=== PATIENT | male | born 1950 | race Caucasian/White ===

== ENCOUNTER → 2016-07-15 | Outpatient (REF) | payer MEDICARE ==
[~2016-07-15] MED LIST: /OXAZ10CA OR; /PRAV20TA OR; /THIA10TA OR; ACET500C OR; BABY81CH OR; COLA100C2 OR; DEPA250T2 OR; DEPA250T3 OR; DETR4CAP OR; FOLI1TAB OR; HYDROCORTISONE0.5 % TOP; KEPPRA PO; LACT10SO8 OR; LOVAZA PO; MULTIVIT PO; NICO14DI3 TD; OMEP20TA7 OR; OYSCO PO; TRIC145T19 OR; VITA100T OR; ZEBE5TAB OR; [UNRECOGNIZED DRUG - OTHER] PO
[2016-07-15 18:18] LABS: MEAN CORPUSCULAR HEMOGLOBIN 31.3 pg (27.0-33.0); MEAN CORPUSCULAR VOLUME 92.2 fl (80.0-96.0); RED CELL DISTRIBUTION WIDTH 13.8 % (11.5-14.5)
[2016-07-15 19:02] LABS: ALBUMIN 4.2 GM/DL (3.2-5.2); ALKALINE PHOSPHATASE 64 U/L (45-117); ALT/SGPT 11 U/L (12-78); ANION GAP 11 MEQ/L (8-16); AST/SGOT 14 U/L (15-37); BILIRUBIN,TOTAL 0.5 MG/DL (0.2-1.0); BLOOD UREA NITROGEN 9 MG/DL (7-18); CALCIUM LEVEL 8.9 MG/DL (8.8-10.2); CARBON DIOXIDE LEVEL 26 MEQ/L (21-32); CHLORIDE LEVEL 101 MEQ/L (98-107); CHOLESTEROL LEVEL 156 MG/DL (<200); CREATININE FOR GFR 0.71 MG/DL (0.70-1.30); GLOMERULAR FILTRATION RATE > 60.0 (>49); GLUCOSE, FASTING 80 MG/DL (80-110); POTASSIUM SERUM 3.9 MEQ/L (3.5-5.1); SODIUM LEVEL 138 MEQ/L (136-145); TOTAL PROTEIN 7.7 GM/DL (6.4-8.2); TRIGLYCERIDES LEVEL 123 MG/DL (<150)
== END ==
LOC: M SFHCPLAZ 15:30
PROVIDERS: ATTEND Nurse Practitioner Adult Health
DX: I25.10 Atherosclerotic heart disease of native coronary artery without angina pectoris (principal); G40.909 Epilepsy, unspecified, not intractable, without status epilepticus; Z79.899 Other long term (current) drug therapy
CPT/HCPCS: 36415; 80053; 80061; 80164; 85027; G0402

== ENCOUNTER → 2018-04-26 | Outpatient (REF) | payer MEDICARE ==
[2018-04-26 13:00] LABS: ALBUMIN 3.8 GM/DL (3.2-5.2); ALT/SGPT 9 U/L (12-78); BILIRUBIN,TOTAL 0.4 MG/DL (0.2-1.0); BLOOD UREA NITROGEN 7 MG/DL (7-18); CALCIUM LEVEL 9.1 MG/DL (8.8-10.2); CARBON DIOXIDE LEVEL 23 MEQ/L (21-32); CHLORIDE LEVEL 101 MEQ/L (98-107); CREATININE FOR GFR 0.66 MG/DL (0.70-1.30); GLOMERULAR FILTRATION RATE > 60.0 (>49); GLUCOSE, FASTING 89 MG/DL (70-100); POTASSIUM SERUM 4.1 MEQ/L (3.5-5.1); SODIUM LEVEL 135 MEQ/L (136-145); TOTAL PROTEIN 7.3 GM/DL (6.4-8.2); VALPROIC ACID (DEPAKOTE) 75.8 UG/ML (50.0-100.0)
== END ==
LOC: M SFHCPLAZ 11:13
PROVIDERS: ATTEND Nurse Practitioner Adult Health
DX: I25.10 Atherosclerotic heart disease of native coronary artery without angina pectoris (principal); G40.909 Epilepsy, unspecified, not intractable, without status epilepticus
CPT/HCPCS: 36415; 80053; 80164; 90682; G0008

== ENCOUNTER 2018-06-20 19:35 | Inpatient (IN) | payer MEDICARE, MEDICAID ==
[~2018-06-20] VITALS: Ht 167.6 cm; Wt 59.9 kg
[2018-06-20] MEDS ORDERED: DIVA250T7 PO (20:13)
[2018-06-20 20:43] LABS: BASO % 0.3 % (0.0-1.0); EOS % 0.5 % (0.0-3.0); HEMATOCRIT 37.3 % (42.0-52.0); HEMOGLOBIN 12.9 g/dl (13.5-17.5); LYMPH # 0.7 10^3/uL (1.5-4.5); MEAN CORPUSCULAR HEMOGLOBIN 31.7 pg (27.0-33.0); MEAN CORPUSCULAR HGB CONC 34.6 g/dl (32.0-36.5); MEAN CORPUSCULAR VOLUME 91.6 fl (80.0-96.0); MONO # 0.3 10^3/uL (0.0-0.8); MONO % 5.6 % (0.0-5.0); NEUTROPHILS % 81.8 % (36.0-66.0); PLATELET COUNT, AUTOMATED 236 10^3/uL (150-450); RED BLOOD COUNT 4.07 10^6/uL (4.30-6.10); WHITE BLOOD COUNT 6.1 10^3/uL (4.0-10.0)
[2018-06-20 20:53] LABS: INR 1.3; PROTHROMBIN TIME 16.4 SECONDS (12.1-14.4)
[2018-06-20 20:54] LABS: PARTIAL THROMBOPLASTIN TIME 27.3 SECONDS (25.4-37.6)
[2018-06-20] MEDS ORDERED: NS 1,000 ML IV SCH (21:04)
[2018-06-20 21:18] LABS: ALBUMIN 3.6 GM/DL (3.2-5.2); ALT/SGPT 24 U/L (12-78); BILIRUBIN,DIRECT 0.6 MG/DL (0.0-0.2); BILIRUBIN,TOTAL 1.4 MG/DL (0.2-1.0); BLOOD UREA NITROGEN 5 MG/DL (7-18); CARBON DIOXIDE LEVEL 20 MEQ/L (21-32); CHLORIDE LEVEL 92 MEQ/L (98-107); CPK CREATINE PHOSPHOKINASE 625 U/L (39-308); CREATININE FOR GFR 1.22 MG/DL (0.70-1.30); ETHYL ALCOHOL (ETHANOL) < 0.003 % (0.000-0.010); FREE T4 1.52 NG/DL (0.76-1.46); GLOMERULAR FILTRATION RATE > 60.0 (>49); GLUCOSE, FASTING 161 MG/DL (70-100); MAGNESIUM LEVEL 2.2 MG/DL (1.8-2.4); MB/CK RELATIVE INDEX 1.66 (< OR =4); PHOSPHORUS LEVEL 4.6 MG/DL (2.5-4.9); POTASSIUM SERUM 3.5 MEQ/L (3.5-5.1); SODIUM LEVEL 129 MEQ/L (136-145); TOTAL PROTEIN 6.9 GM/DL (6.4-8.2); TROPONIN I < 0.02 NG/ML (< 0.10)
--- NOTE | 2018-06-20 21:20 | REPVR ---
EXAM: CT Head Without Contrast EXAM DATE/TIME: 06/20/2018 8:19 PM CLINICAL HISTORY: 67 years old, male; Signs and symptoms; Altered mental status/memory loss; Confusion or disorientation TECHNIQUE: Axial computed tomography images of the head/brain without contrast. All CT scans at this facility use at least one of these dose optimization techniques: automated exposure control; mA and/or kV adjustment per patient size (includes targeted exams where dose is matched to clinical indication); or iterative reconstruction. COMPARISON: No relevant prior studies available. FINDINGS: Brain: Artifact limits evaluation of the posterior fossa and inferior left temporal lobe. There are periventricular foci of hypodensity, suggestive of small vessel ischemic disease in a patient this age. The acuity of the white matter disease is indeterminate. The white-santos differentiation is preserved demonstrating no acute territorial type infarct. No acute intracranial hemorrhage is seen. Midline shift: There is no midline shift. Ventricles: There is ventriculomegaly. Normal pressure or communicating hydrocephalus cannot be excluded. Mild/moderate sulcal atrophy is also visualized. Tiny calcifications are identified within the frontal horn of the left lateral ventricle. Bones/joints: The calvarium demonstrates no evidence for a depressed fracture. Sinuses: Visualized sinuses are unremarkable. No acute sinusitis. Mastoid air cells: No mastoid effusion. Soft tissues: Unremarkable. Vasculature: There is atherosclerotic calcification of the intracranial internal carotid arteries. IMPRESSION: 1. No acute intracranial hemorrhage or acute territorial type infarct. 2. There is ventriculomegaly. Normal pressure or communicating hydrocephalus cannot be excluded. Mild/moderate sulcal atrophy is also visualized. 3. There are periventricular foci of hypodensity, suggestive of small vessel ischemic disease in a patient this age. 4. If further evaluation is clinically indicated, an MRI of the brain with/without contrast is recommended. Electronically signed by: Percy Harvey On 06/20/2018 21:19:56 PM
[2018-06-20 22:02] LABS: VALPROIC ACID (DEPAKOTE) 3.4 UG/ML (50.0-100.0)
[2018-06-20] MEDS: DIVALPROEX 250MG *ER* TAB PO SCH (22:45)
[2018-06-20] MEDS ORDERED: LORazepam 2 MG/ML VIAL (J2060) IM PRN (22:45)
[2018-06-20] MEDS ORDERED: NICOTINE 21MG/24HR 1 EA TRANSDERMAL TD PRN (23:00)
[2018-06-21] MEDS: DIVALPROEX 250MG *ER* TAB PO SCH ×2 (00:24→08:56)
[2018-06-21] MEDS: NS 1,000 ML IV SCH ×3 (00:26→20:33)
[2018-06-21 03:57] LABS: AMPHETAMINES LEVEL URINE NEGATIVE (NEGATIVE); BARBITURATES URINE NEGATIVE (NEGATIVE); BENZODIAZEPINES URINE NEGATIVE (NEGATIVE); CANNABINOIDS URINE NEGATIVE (NEGATIVE); COCAINE METABOLITE URINE NEGATIVE (NEGATIVE); METHADONE URINE NEGATIVE (NEGATIVE); OPIATES URINE NEGATIVE (NEGATIVE); PHENCYCLIDINE URINE NEGATIVE (NEGATIVE)
[2018-06-21 05:36] LABS: HEMATOCRIT 30.5 % (42.0-52.0); MEAN CORPUSCULAR HEMOGLOBIN 32.2 pg (27.0-33.0); MEAN CORPUSCULAR HGB CONC 36.1 g/dl (32.0-36.5); MEAN CORPUSCULAR VOLUME 89.2 fl (80.0-96.0); PLATELET COUNT, AUTOMATED 201 10^3/uL (150-450); RED BLOOD COUNT 3.42 10^6/uL (4.30-6.10); WHITE BLOOD COUNT 5.9 10^3/uL (4.0-10.0)
[2018-06-21 05:57] LABS: ALBUMIN 2.8 GM/DL (3.2-5.2); ALT/SGPT 22 U/L (12-78); BILIRUBIN,TOTAL 0.8 MG/DL (0.2-1.0); BLOOD UREA NITROGEN 6 MG/DL (7-18); CALCIUM LEVEL 7.6 MG/DL (8.8-10.2); CARBON DIOXIDE LEVEL 26 MEQ/L (21-32); CHLORIDE LEVEL 92 MEQ/L (98-107); CPK CREATINE PHOSPHOKINASE 456 U/L (39-308); CREATININE FOR GFR 0.65 MG/DL (0.70-1.30); GLOMERULAR FILTRATION RATE > 60.0 (>49); GLUCOSE, FASTING 110 MG/DL (70-100); MAGNESIUM LEVEL 1.9 MG/DL (1.8-2.4); POTASSIUM SERUM 2.9 MEQ/L (3.5-5.1); SODIUM LEVEL 129 MEQ/L (136-145); TOTAL PROTEIN 5.3 GM/DL (6.4-8.2)
[2018-06-21] MEDS ORDERED: POTASSIUM CHLORIDE 10 MEQ SR TABLET As Ordered ONE (06:07)
[2018-06-21] MEDS: HEPARIN SOD (PORCINE) 5000 UNITS/ML VIAL SC SCH ×3 (06:35→22:00)
[2018-06-21] MEDS: POTASSIUM CHLORIDE 10 MEQ SR TABLET PO SCH ×2 (06:36→08:56)
--- NOTE | 2018-06-21 07:22 | REP ---
Portable chest, 08:17 p.m., single AP view, patient sitting: Comparison is 04/12/2011. The lung baez are clear. The cardiac size is normal. The silvio, mediastinum, and skeletal structures are unremarkable. Impression: Negative portable chest. There is no interval change. Electronically Signed by Kota Hernandes MD 06/21/2018 07:13 A
--- NOTE | 2018-06-21 07:25 | REP ---
Right upper quadrant abdominal ultrasound: There is no cholelithiasis, gallbladder wall thickening or pericholecystic fluid. There is a small volume of biliary sludge in the gallbladder. There is no intrahepatic or extrahepatic biliary duct dilatation. The common biliary duct measures 3.7 mm in diameter. The hepatic parenchyma is homogeneous and otherwise unremarkable. The pancreas is obscured by bowel gas. Right kidney measures 10.7 x 5.6 x 5.2 cm and is normal size. There are no calculi, there is no hydronephrosis. There are no solid or cystic renal masses. Impression: Small volume of biliary sludge in the gallbladder. Hepatic parenchyma is homogeneous and otherwise unremarkable. Electronically Signed by Kota Hernandes MD 06/21/2018 07:16 A
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
[2018-06-21 11:55] LABS: BLOOD UREA NITROGEN 8 MG/DL (7-18); CALCIUM LEVEL 8.1 MG/DL (8.8-10.2); CARBON DIOXIDE LEVEL 26 MEQ/L (21-32); CHLORIDE LEVEL 94 MEQ/L (98-107); CREATININE FOR GFR 0.98 MG/DL (0.70-1.30); GLOMERULAR FILTRATION RATE > 60.0 (>49); GLUCOSE, FASTING 87 MG/DL (70-100); POTASSIUM SERUM 3.6 MEQ/L (3.5-5.1); SODIUM LEVEL 131 MEQ/L (136-145)
[2018-06-21 13:48] LABS: BLOOD UREA NITROGEN 8 MG/DL (7-18); CALCIUM LEVEL 7.9 MG/DL (8.8-10.2); CARBON DIOXIDE LEVEL 21 MEQ/L (21-32); CHLORIDE LEVEL 97 MEQ/L (98-107); CREATININE FOR GFR 1.01 MG/DL (0.70-1.30); GLOMERULAR FILTRATION RATE > 60.0 (>49); GLUCOSE, FASTING 91 MG/DL (70-100); POTASSIUM SERUM 3.5 MEQ/L (3.5-5.1); SODIUM LEVEL 127 MEQ/L (136-145)
--- NOTE | 2018-06-21 17:04 | ECGEPIP ---
Stationary ECG Study [facility] - ED Test Date: 2018-06-20 Pat Name: MIKEY BARBER Department: Room: [place] [address] Gender: M Hosting Engineer: LIVIER : 1950 Requested By: JEREMIAH Correia Order Number: [id number] Reading MD: Maycol Allen Measurements Intervals [place] Rate: 122 P: VA: 0 QRS: 55 QRSD: 97 T: 49 QT: 315 QTc: 450 Interpretive Statements ATRIAL FIBRILLATION WITH RAPID VENTRICULAR RESPONSE NONSPECIFIC ST & T-WAVE ABNORMALITY NO PRIORS FOR COMPARISON Electronically Signed On 06-21-2018 17:04:04 EST by Maycol Allen
--- NOTE | 2018-06-21 17:05 | ECGEPIP ---
Stationary ECG Study [facility] - ED Test Date: 2018-06-20 Pat Name: MIKEY BARBER Department: Room: [place] [address] Gender: M Paper Twister: ROGELIO : 1950 Requested By: JEREMIAH Correia Order Number: [id number] Reading MD: Maycol Allen Measurements Intervals [place] Rate: 101 P: 79 MA: 196 QRS: 70 QRSD: 95 T: 66 QT: 344 QTc: 447 Interpretive Statements SINUS TACHYCARDIA POSSIBLE LEFT ATRIAL ENLARGEMENT BASELINE ARTIFACT AFFECTS INTERPRETATION RHYTHM/RATE CHANGE COMPARED TO PRIOR ON SAME DATE Electronically Signed On 06-21-2018 17:05:00 EST by Maycol Allen
[2018-06-21] MEDS ORDERED: HALOPERIDOL 5 MG/ML VIAL (J1630) IV PRN (21:15)
[2018-06-21 23:50] LABS: BLOOD UREA NITROGEN 11 MG/DL (7-18); CALCIUM LEVEL 7.5 MG/DL (8.8-10.2); CARBON DIOXIDE LEVEL 23 MEQ/L (21-32); CHLORIDE LEVEL 101 MEQ/L (98-107); CREATININE FOR GFR 0.73 MG/DL (0.70-1.30); GLOMERULAR FILTRATION RATE > 60.0 (>49); GLUCOSE, FASTING 93 MG/DL (70-100); POTASSIUM SERUM 3.7 MEQ/L (3.5-5.1); SODIUM LEVEL 133 MEQ/L (136-145)
[2018-06-22] MEDS: NS 1,000 ML IV SCH ×3 (02:36→23:40)
[2018-06-22 05:52] LABS: HEMATOCRIT 27.6 % (42.0-52.0); HEMOGLOBIN 9.6 g/dl (13.5-17.5); MEAN CORPUSCULAR HEMOGLOBIN 31.5 pg (27.0-33.0); MEAN CORPUSCULAR HGB CONC 34.8 g/dl (32.0-36.5); MEAN CORPUSCULAR VOLUME 90.5 fl (80.0-96.0); PLATELET COUNT, AUTOMATED 195 10^3/uL (150-450); RED BLOOD COUNT 3.05 10^6/uL (4.30-6.10); WHITE BLOOD COUNT 4.3 10^3/uL (4.0-10.0)
[2018-06-22] MEDS: HEPARIN SOD (PORCINE) 5000 UNITS/ML VIAL SC SCH ×3 (06:00→22:00)
[2018-06-22 06:21] LABS: ALBUMIN 2.4 GM/DL (3.2-5.2); ALT/SGPT 16 U/L (12-78); BILIRUBIN,TOTAL 0.4 MG/DL (0.2-1.0); BLOOD UREA NITROGEN 6 MG/DL (7-18); CALCIUM LEVEL 7.2 MG/DL (8.8-10.2); CARBON DIOXIDE LEVEL 23 MEQ/L (21-32); CHLORIDE LEVEL 101 MEQ/L (98-107); CREATININE FOR GFR 0.43 MG/DL (0.70-1.30); GLOMERULAR FILTRATION RATE > 60.0 (>49); GLUCOSE, FASTING 84 MG/DL (70-100); POTASSIUM SERUM 3.4 MEQ/L (3.5-5.1); SODIUM LEVEL 132 MEQ/L (136-145); TOTAL PROTEIN 5.1 GM/DL (6.4-8.2)
[2018-06-22] MEDS ORDERED: POTASSIUM CHLORIDE 10 MEQ SR TABLET PO ONE (08:15)
[2018-06-22 09:55] VITALS: BP 132/79
[2018-06-22] MEDS: DIVALPROEX 250MG *ER* TAB PO SCH ×2 (10:46→22:00)
[2018-06-22 14:00] VITALS: BP 133/72
--- NOTE | 2018-06-22 21:33 | IPN ---
DATE OF VISIT: 06/21/2018 SUBJECTIVE: The patient is seen and examined in the room today. During the encounter the patient denies any acute complaints. No complaints of shortness of breath. Denies any chest pain or crepitations. OBJECTIVE: VITAL SIGNS: Temperature is 98.1, pulse is 88, respirations 19, blood pressure is 101/64, pulse oximetry is 98% on room air. GENERAL: The patient is alert and awake. No signs of acute distress. Tangential speech. Easy redirectable. HEENT: Normocephalic, atraumatic. CARDIOVASCULAR: Positive S1, S2, regular rate. RESPIRATORY: Clear to auscultation bilaterally. ABDOMEN: Soft, nontender, nondistended. EXTREMITIES: No edema. LABORATORY DATA: White blood cell (WBC) 5.9, hemoglobin 11, hematocrit 30.5, platelet count 301. Sodium is 129, potassium 2.9, chloride is 92, carbon dioxide 26, BUN is 6, creatinine 0.65, glomerular filtration rate (GFR) is greater than 60, fasting glucose is 110, calcium 7.6, magnesium is 1.9, total bilirubin 0.8, AST 37, ALT is 22, alkaline phosphatase is 63, total CK is 456, total protein 5.3, albumin 2.8. ASSESSMENT AND PLAN: 1. Abnormal behaviors. The patient was brought in by the emergency medical services (EMS) ambulance after being reported by the neighbor for sitting outside on the porch with inappropriate dress. Work up for altered mental status initiated. The patient had not been taking his Depakote prior to admission. Imaging studies reviewed. CT of the brain reviewed. Neurology consulted. Urinalysis (UA) negative. Urine toxicology negative. Blood alcohol level negative. On the patient's chart review, the patient does have a history of tangential speech. The patient has a history of seizure disorders. 2. Hyponatremia. The patient is currently on normal saline. Clinically, the patient did demonstrate a certain degree of dehydration. 3. History of seizures. Continue on Depakote. 4. Tobacco usage. Nicotine patch. 5. Deep venous thrombosis (DVT) prophylaxis: Heparin.
--- NOTE | 2018-06-22 21:40 | IPN ---
DATE: 06/22/2018 SUBJECTIVE: The patient is seen and examined in the room today. The patient denies any acute complaints. The patient denies any chest pain or shortness of breath. Denies any fever or chills. OBJECTIVE: VITAL SIGNS: Temperature is 98.8, pulse 89, respirations 18, blood pressure (BP) is 113/62, pulse oximetry is 100% on room air. PHYSICAL EXAMINATION: No sign of acute distress. Alert and awake. HEENT: Normocephalic, atraumatic. Extraocular muscles intact CARDIOVASCULAR: Positive S1, S2. Regular rate. LUNGS: Clear to auscultation bilaterally. ABDOMEN: Soft, nontender, nondistended. Positive bowel sounds. EXTREMITIES: No edema. LABORATORY DATA: White blood count (WBC) 4.3, hemoglobin 9.6, hematocrit 37.6, platelet count is 195. Sodium is 132, potassium is 3.4, chloride 101, carbon dioxide 23, BUN 6, creatinine 0.43, glomerular filtration rate (GFR) greater than 60, fasting glucose 84, calcium is 7.2, total bilirubin is 0.4, AST is 26, ALT is 16, alkaline phosphatase 22. Total protein 5.1, albumin 2.4. ASSESSMENT AND PLAN: 1. Altered mental status. The patient's Depakote restarted. The patient ran out of Depakote prior to admission. CT of the head results reviewed. Neurology consulted. Will continue to look for possible sources of altered mental status. Urinalysis is negative. 2. History of seizure disorder on Depakote. 3. Tobacco abuse on as needed nicotine patch. 4. Deep vein thrombosis (DVT) prophylaxis on heparin.
[2018-06-22 22:00] VITALS: BP 132/70
[2018-06-23] MEDS: HEPARIN SOD (PORCINE) 5000 UNITS/ML VIAL SC SCH ×3 (05:08→22:00)
[2018-06-23 05:44] LABS: HEMATOCRIT 28.7 % (42.0-52.0); HEMOGLOBIN 9.9 g/dl (13.5-17.5); MEAN CORPUSCULAR HGB CONC 34.5 g/dl (32.0-36.5); PLATELET COUNT, AUTOMATED 208 10^3/uL (150-450); RED BLOOD COUNT 3.19 10^6/uL (4.30-6.10); WHITE BLOOD COUNT 4.7 10^3/uL (4.0-10.0)
[2018-06-23 06:00] VITALS: BP 144/84
[2018-06-23 06:02] LABS: ALBUMIN 2.6 GM/DL (3.2-5.2); ALT/SGPT 18 U/L (12-78); BILIRUBIN,TOTAL 0.3 MG/DL (0.2-1.0); BLOOD UREA NITROGEN 7 MG/DL (7-18); CALCIUM LEVEL 7.6 MG/DL (8.8-10.2); CARBON DIOXIDE LEVEL 21 MEQ/L (21-32); CHLORIDE LEVEL 101 MEQ/L (98-107); CREATININE FOR GFR 0.54 MG/DL (0.70-1.30); GLOMERULAR FILTRATION RATE > 60.0 (>49); GLUCOSE, FASTING 75 MG/DL (70-100); SODIUM LEVEL 131 MEQ/L (136-145); TOTAL PROTEIN 5.4 GM/DL (6.4-8.2)
[2018-06-23] MEDS: DIVALPROEX 250MG *ER* TAB PO SCH ×2 (09:37→22:43)
--- NOTE | 2018-06-23 10:03 | CR ---
DATE OF CONSULTATION: 06/21/2018 REASON FOR CONSULTATION: Altered mental status. HISTORY OF PRESENT ILLNESS: Zacarias Levy is a 67-year-old male who was brought to [facility] after being found to have possible altered mental status. The patient himself denies it. The patient states that he was sitting on his porch waiting for an ambulance and as he went out and asked his neighbor tenants to contact the EMS for him. The patient states he could not fill his prescription for his Depakote 250 mg twice a day which is being used for a seizure disorder it seems. He has not taken it for at least a week. He denies having any generalized tonic-clonic seizures. The patient did have a head CT which showed chronic changes without any acute events. The patient appeared to be confused in the emergency department at times and seemed to calm down when he had a one-to-one sitter. When he was confused, he was in the bathroom making a mess of himself after having a bowel movement. He was noted by nursing staff to be smearing stool on the rojas. The patient was noted to be hyponatremic, he himself is unaware of whether he has chronic hyponatremia or not. This certainly could be a contributing factor towards metabolic encephalopathy as a cause for his confusion. His sodium was as low as 127. His B12 level and TSH were within normal limits. His urine toxicology was negative. His valproic acid level was 3.4. His ventricles were slightly enlarged. He does have chronic incontinence. There is a question whether he has normal pressure hydrocephalus. He may need outpatient neurosurgical evaluation. The patient will be admitted and will be having an electroencephalogram (EEG) as well as a MRI is possible. REVIEW OF SYSTEMS: A 14-point review of review of systems was negative except as per history of present illness (HPI). ALLERGIES: No known drug allergies. HOME MEDICATIONS: - Depakote 250 mg by mouth twice a day SOCIAL HISTORY: The patient smokes tobacco. Denies use of alcohol or illicit drugs. FAMILY HISTORY: Noncontributory. PHYSICAL EXAMINATION: Blood pressure is 117/79, pulse rate 104, respiratory rate is 19, temperature is 98.1 degrees Fahrenheit and oxygenation 98% on room air. Current 5 feet 6 inches. Current weight is 60 kg. The patient is awake, alert, oriented to person, place and time. Speech, language, comprehension and repetition are intact. Pupils are 2.5 mm round, reactive to light. Extraocular movements are intact in all directions. Sensation V1, V2 and V3 is intact to light touch. No facial asymmetry to activation. Palate elevates symmetrically. Tongue is midline. No weakness of sternocleidomastoids bilaterally. There is no pronator drift. The patient has reasonable strength in his deltoids and biceps. His left triceps is extremely weak and grade 4-. His hand budget report clerk are weak. Hand intrinsic muscles are atrophied slightly. Normal strength in the lower extremities. Deep tendon reflexes are reduced throughout. Sensory is intact to light touch in all four extremities. Coordination without any signs of gross ataxia or dysmetria. The patient has some flexion contractures of his fingers in his hands bilaterally. The patient ambulates reasonably without any obvious ataxia or wide-based gait. ASSESSMENT AND PLAN: 1. Altered mental status, possible metabolic encephalopathy secondary to hyponatremia. 2. Cannot entirely exclude underlying normal pressure hydrocephalus. Consider outpatient neurosurgical evaluation. 3. Obtain EEG. Obtain MRI. 4. Continue supportive care. 5. Restart Depakote 250 mg by mouth twice a day. 6. The patient can followup with his primary care provider who manages his seizure disorder as scheduled. 7. Weakness of the upper extremity thought to be secondary to cervical etiology. The patient states that many decades ago he was noted to have severe cervical disease. Recommend MRI of cervical spine.
[2018-06-23] MEDS: NS 1,000 ML IV SCH (12:27)
[2018-06-23 14:00] VITALS: BP 119/74
--- NOTE | 2018-06-23 18:41 | EEG ---
DATE OF PROCEDURE: REFERRING PHYSICIAN: Dr. Rosenda Casey DIAGNOSIS: Altered mental status. EEG NUMBER: [id number] HISTORY: The patient is a 67-year-old man with a history of seizures. He was admitted at [facility] after he was found sitting in his porch dressed inappropriately. This EEG was done to rule out epileptic potential. He is currently taking Depakote, Ativan, Haldol, etc. TECHNICAL DESCRIPTION: This digital EEG was recorded by 21 scalp, ear and two EKG electrodes and was reviewed in bipolar and referential montages following reformatting in 10-20 international electrode placement system. INTERPRETATION: The patient was noted to be in awake and drowsy states during this EEG. Resting awake background rhythm consisted of well-formed posterior dominant rhythm with anterior/posterior gradient comprising of 8-9 Hz alpha activity measuring 15-40 microvolts in amplitude, which was symmetric and reactive to eye opening. Anteriorly low voltage and mixed frequency activity was noted. Attenuation of posterior dominant rhythm was seen during transition into drowsiness. Stage I and II sleep were reviewed and were symmetric bilaterally. Hyperventilation could not be performed. Photic stimulation remained unremarkable. EKG revealed normal sinus rhythm. No focal, lateralizing or epileptiform abnormalities were seen. No relevant clinical activity was recorded. CONCLUSION: This EEG in awake and drowsy states, stage I and II sleep is within normal limits.
--- NOTE | 2018-06-23 19:01 | IPNPDOC ---
Text Note Date of Service The patient was seen on 06/23/18. NOTE SUBJECTIVE: The patient is seen and examined in the room today. Patient denies acute complaint. Patient is poor historian. Patient refused physial exam today. OBJECTIVE: VITAL SIGNS: Listed below. PHYSICAL EXAMINATION: No sign of acute distress. Alert and awake. HEENT: Normocephalic, atraumatic. Extraocular muscles intact CARDIOVASCULAR: Positive S1, S2. Regular rate. LUNGS: Clear to auscultation bilaterally. ABDOMEN: Soft, nontender, nondistended. Positive bowel sounds. EXTREMITIES: No edema. LABORATORY DATA: Listed below. ASSESSMENT AND PLAN: #. Altered mental status. - The patient's Depakote restarted. The patient ran out of Depakote prior to admission. CT of the head results reviewed. Neurology consulted. - MRI brain ordered. Will continue to look for possible sources of altered mental status. - Patient is poor historian. Contacted Ms. Colón, who was patient's old neighbor. Their last encounter was more than 2 years ago. - Urinalysis is negative. #. History of seizure disorder on Depakote. #. Tobacco abuse on as needed nicotine patch. #. Deep vein thrombosis (DVT) prophylaxis on heparin. VS,Fishbone, I+O VS, Fishbone, I+O Laboratory Tests 06/23/18 04:57 Red Blood Count 3.19 L, Mean Corpuscular Volume 90.0, Mean Corpuscular Hemoglobin 31.0, Mean Corpuscular Hemoglobin Concent 34.5, Red Cell Distribution Width 15.1 H, Calcium Level 7.6 L, Aspartate Amino Transf (AST/SGOT) 26, Alanine Aminotransferase (ALT/SGPT) 18, Alkaline Phosphatase 54, Total Bilirubin 0.3, Total Protein 5.4 L, Albumin 2.6 L Vital Signs Date Time Temp Pulse Resp B/P (MAP) Pulse Ox O2 Delivery O2 Flow Rate FiO2 06/23/18 14:00 98.1 90 18 119/74 (89) 100 06/22/18 09:31 Room Air I&O- Last 24 Hours up to 6 AM 06/23/18 06:00 Intake Total 2610 ml Output Total 250 ml Balance 2360 ml SOLOMON MARTINEZ DO Jun 23, 2018 19:01
[2018-06-24 01:30] VITALS: BP 134/74
[2018-06-24] MEDS: HEPARIN SOD (PORCINE) 5000 UNITS/ML VIAL SC SCH ×3 (05:28→20:22)
[2018-06-24 06:33] LABS: HEMATOCRIT 30.5 % (42.0-52.0); HEMOGLOBIN 10.6 g/dl (13.5-17.5); MEAN CORPUSCULAR HEMOGLOBIN 31.8 pg (27.0-33.0); MEAN CORPUSCULAR HGB CONC 34.8 g/dl (32.0-36.5); MEAN CORPUSCULAR VOLUME 91.6 fl (80.0-96.0); PLATELET COUNT, AUTOMATED 223 10^3/uL (150-450); RED BLOOD COUNT 3.33 10^6/uL (4.30-6.10); WHITE BLOOD COUNT 4.3 10^3/uL (4.0-10.0)
[2018-06-24 07:04] LABS: ALBUMIN 2.7 GM/DL (3.2-5.2); ALT/SGPT 21 U/L (12-78); BILIRUBIN,TOTAL 0.3 MG/DL (0.2-1.0); BLOOD UREA NITROGEN 7 MG/DL (7-18); CALCIUM LEVEL 7.8 MG/DL (8.8-10.2); CARBON DIOXIDE LEVEL 23 MEQ/L (21-32); CHLORIDE LEVEL 101 MEQ/L (98-107); CREATININE FOR GFR 0.45 MG/DL (0.70-1.30); GLOMERULAR FILTRATION RATE > 60.0 (>49); GLUCOSE, FASTING 105 MG/DL (70-100); SODIUM LEVEL 131 MEQ/L (136-145); TOTAL PROTEIN 5.6 GM/DL (6.4-8.2)
[2018-06-24] MEDS: DIVALPROEX 250MG *ER* TAB PO SCH ×2 (09:48→20:21)
--- NOTE | 2018-06-24 15:29 | IPNPDOC ---
Text Note Date of Service The patient was seen on 06/24/18. NOTE SUBJECTIVE: The patient is seen in the room today. Patient is poor historian. Patient refused physical examination again. MRI ordered but patient also refused MRI yesterday. He does not give specific reason why he refused MRI. OBJECTIVE: VITAL SIGNS: Listed below. PHYSICAL EXAMINATION: Patient refused physical examination. LABORATORY DATA: Listed below. ASSESSMENT AND PLAN: #. Altered mental status. - The patient's Depakote restarted. The patient ran out of Depakote prior to admission. CT of the head results reviewed. Neurology consulted. - MRI brain and neck ordered. Patient refused. - Patient is poor historian. Contacted Ms. Colón, who was patient's old neighbor. Their last encounter was more than 2 years ago. - Urinalysis is negative. #. History of seizure disorder on Depakote. #. Tobacco abuse on as needed nicotine patch. #. Deep vein thrombosis (DVT) prophylaxis on heparin. VS,Fishbone, I+O VS, Fishbone, I+O Laboratory Tests 06/24/18 06:22 Red Blood Count 3.33 L, Mean Corpuscular Volume 91.6, Mean Corpuscular Hemoglobin 31.8, Mean Corpuscular Hemoglobin Concent 34.8, Red Cell Distribution Width 15.3 H, Calcium Level 7.8 L, Aspartate Amino Transf (AST/SGOT) 20, Alanine Aminotransferase (ALT/SGPT) 21, Alkaline Phosphatase 53, Total Bilirubin 0.3, Total Protein 5.6 L, Albumin 2.7 L Vital Signs Date Time Temp Pulse Resp B/P (MAP) Pulse Ox O2 Delivery O2 Flow Rate FiO2 06/24/18 14:00 98.7 06/24/18 01:30 86 18 134/74 (94) 100 06/23/18 14:00 06/22/18 09:31 Room Air I&O- Last 24 Hours up to 6 AM 06/24/18 06:00 Intake Total 1900 ml Balance 1900 ml SOLOMON MARTINEZ DO Jun 24, 2018 15:29
[2018-06-24 22:00] VITALS: BP 107/71
[2018-06-25] MEDS: HEPARIN SOD (PORCINE) 5000 UNITS/ML VIAL SC SCH ×3 (05:08→20:25)
[2018-06-25] MEDS: DIVALPROEX 250MG *ER* TAB PO SCH ×2 (10:03→20:25)
--- NOTE | 2018-06-25 17:47 | IPNPDOC ---
Text Note Date of Service The patient was seen on 06/25/18. NOTE SUBJECTIVE: The patient is seen in the room today. Patient refused lab test, MRI scan and physical examinations today. Patient has been very non-cooperative during the encounter. OBJECTIVE: VITAL SIGNS: Listed below. PHYSICAL EXAMINATION: Patient refused physical examinations. LABORATORY DATA: Refused. ASSESSMENT AND PLAN: #. Altered mental status. - The patient's Depakote restarted. The patient ran out of Depakote prior to admission. CT of the head results reviewed. Neurology consulted. - MRI brain and neck ordered. Patient refused multiple times. - Patient is poor historian. Contacted Ms. Colón, who was patient's old ne anastasiabor, multiple times in the last few days. Their last encounter was more than 2 years ago. Unable to obtain useful informatoin. - Urinalysis is negative. - Psychiatrist consulted for capacity. #. History of seizure disorder on Depakote. #. Tobacco abuse on as needed nicotine patch. #. Deep vein thrombosis (DVT) prophylaxis on heparin. VS,Fishbone, I+O VS, Fishbone, I+O Vital Signs Date Time Temp Pulse Resp B/P (MAP) Pulse Ox O2 Delivery O2 Flow Rate FiO2 06/24/18 22:00 99.1 102 18 107/71 (83) 100 06/23/18 14:00 06/22/18 09:31 Room Air I&O- Last 24 Hours up to 6 AM 06/25/18 06:00 Intake Total 1380 ml Output Total 0 ml Balance 1380 ml SOLOMON MARTINEZ DO Jun 25, 2018 17:47
[2018-06-25 22:00] VITALS: BP 137/76
[2018-06-26] MEDS: HEPARIN SOD (PORCINE) 5000 UNITS/ML VIAL SC SCH ×3 (05:12→21:40)
[2018-06-26 06:00] VITALS: BP 136/83
[2018-06-26] MEDS: DIVALPROEX 250MG *ER* TAB PO SCH ×2 (08:40→21:40)
[2018-06-26] MEDS ORDERED: HALOPERIDOL 5 MG/ML VIAL (J1630) IM PRN (12:45)
[2018-06-26] MEDS ORDERED: LORazepam 2 MG/ML VIAL (J2060) IM PRN (12:45)
[2018-06-26] MEDS ORDERED: diphenhydrAMINE INJ 50MG/ML VIAL (J1200) IM PRN (12:45)
--- NOTE | 2018-06-26 16:02 | IPNPDOC ---
Text Note Date of Service The patient was seen on 06/26/18. NOTE SUBJECTIVE: The patient is seen in the room today. Patient continues refusing lab test, MRI scan and physical examinations today. OBJECTIVE: VITAL SIGNS: Listed below. PHYSICAL EXAMINATION: Patient refused physical examinations. LABORATORY DATA: Refused. ASSESSMENT AND PLAN: #. Altered mental status. - The patient's Depakote restarted. The patient ran out of Depakote prior to admission. CT of the head results reviewed. Neurology consulted. - MRI brain and neck ordered. Patient has refused multiple times. - Patient is poor historian. Contacted Ms. Colón, who was patient's old neighbor, multiple times in the last few days. Their last encounter was more than 2 years ago. Unable to obtain useful informatoin. - Urinalysis is negative. - Psychiatrist consulted. Discussed with Dr. Bonilla. Patient does not have capacity at this moment. # Ventriculomegaly. - Noted from CT of head. Normal pressure or communicating hydrocephalus cannot be excluded. - Patient refused MRI brain. #. History of seizure disorder on Depakote. #. Tobacco abuse on as needed nicotine patch. #. Deep vein thrombosis (DVT) prophylaxis on heparin. VS,Fishbone, I+O VS, Fishbone, I+O Vital Signs Date Time Temp Pulse Resp B/P (MAP) Pulse Ox O2 Delivery O2 Flow Rate FiO2 06/26/18 06:00 97.8 91 18 136/83 (100) 98 06/23/18 14:00 06/22/18 09:31 Room Air I&O- Last 24 Hours up to 6 AM 06/26/18 06:00 Intake Total 1450 ml Output Total 1 ml Balance 1449 ml SOLOMON MARTINEZ DO Jun 26, 2018 16:02
--- NOTE | 2018-06-26 17:38 | IPN ---
DATE: 06/26/2018 I was called to attend patient at the bedside for a seizure event. Apparently, at approximately 4:45 p.m., patient was found to be in wheelchair, unconscious, with secretion pooling in the mouth, patient had an active seizure at the moment. Patient did not have any IV access and Ativan was given. When I arrived at patient's bedside, patient appeared to be in a postictal state. The seizure lasted approximately 90 seconds. Vital signs are stable. Stat labs ordered. During the following encounter, patient is arousable however he is not able to answer any questions. Patient was found to have urinary incontinence, no loss of bowel control, no apparent sign of tongue biting. Patient is transferred to progressive care unit (PCU) for closer monitoring. This will be the first time patient demonstrated seizure activity since admission.
[2018-06-26 17:49] LABS: BASO % 0.9 % (0.0-1.0); EOS # 0.1 10^3/uL (0.0-0.50); EOS % 1.5 % (0.0-3.0); HEMATOCRIT 32.8 % (42.0-52.0); LYMPH # 1.5 10^3/uL (1.5-4.5); LYMPH % 31.9 % (24.0-44.0); MEAN CORPUSCULAR HEMOGLOBIN 31.7 pg (27.0-33.0); MEAN CORPUSCULAR HGB CONC 33.5 g/dl (32.0-36.5); MEAN CORPUSCULAR VOLUME 94.5 fl (80.0-96.0); MONO # 0.5 10^3/uL (0.0-0.8); MONO % 9.8 % (0.0-5.0); NEUTROPHILS # 2.5 10^3/uL (1.8-7.7); NEUTROPHILS % 55.2 % (36.0-66.0); PLATELET COUNT, AUTOMATED 212 10^3/uL (150-450); RED BLOOD COUNT 3.47 10^6/uL (4.30-6.10); WHITE BLOOD COUNT 4.6 10^3/uL (4.0-10.0)
[2018-06-26 18:10] VITALS: BP 126/68
[2018-06-26 18:18] LABS: ALT/SGPT 16 U/L (12-78); BILIRUBIN,TOTAL 0.4 MG/DL (0.2-1.0); BLOOD UREA NITROGEN 7 MG/DL (7-18); CALCIUM LEVEL 8.3 MG/DL (8.8-10.2); CARBON DIOXIDE LEVEL 24 MEQ/L (21-32); CHLORIDE LEVEL 102 MEQ/L (98-107); CREATININE FOR GFR 0.54 MG/DL (0.70-1.30); GLOMERULAR FILTRATION RATE > 60.0 (>49); GLUCOSE, FASTING 91 MG/DL (70-100); POTASSIUM SERUM 3.5 MEQ/L (3.5-5.1); SODIUM LEVEL 136 MEQ/L (136-145); TOTAL PROTEIN 6.2 GM/DL (6.4-8.2); VALPROIC ACID (DEPAKOTE) 59.1 UG/ML (50.0-100.0)
[2018-06-26 19:10] LABS: PROLACTIN 26.5 NG/ML (2.1-17.7)
[2018-06-26 20:00] VITALS: BP 115/86
[2018-06-26 23:59] VITALS: BP 117/63
[2018-06-27 05:00] VITALS: BP 110/66
[2018-06-27] MEDS: HEPARIN SOD (PORCINE) 5000 UNITS/ML VIAL SC SCH ×3 (06:00→20:14)
[2018-06-27 08:00] VITALS: BP 121/70
[2018-06-27] MEDS: DIVALPROEX 250MG *ER* TAB PO SCH ×2 (08:09→20:14)
[2018-06-27 12:00] VITALS: BP 118/80
--- NOTE | 2018-06-27 12:56 | MHCR ---
DATE OF CONSULTATION: 06/25/2018 I was asked to evaluate this 57-year-old white man who was admitted to the hospital. Apparently, the neighbor had seen him sitting outside dressed with inappropriate clothing, and he was brought to the hospital by emergency medical services (EMS). The patient has a past medical history of seizure disorder and a history of alcohol abuse, but he says that he quit drinking 7 years ago. The patient was noted to be very disheveled, and he really could not explain why he was standing outside. He had multiple complaints that his heart was racing, that he was having difficulty breathing. Chest x-ray was negative. He indicated that he had not eaten in 4 to 5 days because he had not been able to get out of his home. He stated that he had not taken his Depakote because his phone was disconnected and he was unable to call the pharmacy. Apparently, CT of the head showed dilated ventricles and they are trying to rule out NPH, but the patient has been refusing to get an MRI done. He was noted to have hyponatremia of 129. The patient was admitted with a diagnosis of altered mental status with metabolic encephalopathy and to rule out whether it could be normal pressure hydrocephalus or possibly if he had a breakthrough seizure or possibly whether he might still be drinking. Also, the plan was to treat his hyponatremia and the question was whether this was due to dehydration or psychogenic polydipsia. In reviewing the patient's history, prior admission to the hospital many years ago in 2010 he also had hyponatremia and it was felt that he was drinking too much fluid and had to be placed on fluid restriction. The reason why I was consulted was because the doctor feels that the patient is exhibiting confusion, that he is doing things like going to the bathroom and putting stool on the rojas, that he is getting verbally aggressive with staff. He is refusing to get an MRI done or to get his daily blood work to check his sodium levels. For example, he refused to have a physical examination done yesterday, but the patient tells me that the reason he did that was because he was angry at the physician for placing him on fluid restriction. He says that he started off having so many blood tests done. He showed me his arms and that they hurt from so many needles that he has had poking at him. He is really not very compliant with my questions and he is very sarcastic and when I try to ask him questions like "Do you understand why you are on fluid restriction?" His answers would be "But, but, but...it is the same story isn't it?" When I tried to evaluate him further he stated that he was tired of answering the same questions and that he has already answered those questions and I could find them in the chart. The other thing that he kept repeating was that his primary provider, Bernie Mejia, will be coming tomorrow to the hospital and will be giving him his prescription and he will be going home tomorrow. Then finally he said, "Okay that's it, I am turning the tv back on." After that he would not answer any further questions. Of note, I did see the record from when he saw Bernie Servvirgilio in 2017 and she states very clearly that he tends to be noncompliant with his medical treatment and it seemed that he picked and chose what medications he wanted to take and which ones he did not want to take. Dr. Casey pointed out that the patient had been hospitalized on 04/18/2011 until 04/28/2011 and that he was seen by psychiatry then. Apparently they thought that he had delirium and possible cognitive disorder and a possible mood disorder secondary to alcohol use. Of note, the discharge summary from that admission showed that the patient improved significantly and the psychiatric consultation that was done the day before discharge by Dr. Riggins shows that the patient was able to make his decisions that point to go home and actually the way the mental status is described by Dr. Riggins is showing that he did fairly well with the mini mental status and so whatever was going on at that time I do not think is relevant at this point, particularly since that was in 2010. PAST PSYCHIATRIC TREATMENT: I am not aware of any psychiatric treatment according to the chart, but I did not get as far as to ask the patient that. MEDICAL HISTORY: The patient, as I noted above, has a history of seizures, hyponatremia. SUBSTANCE ABUSE HISTORY: The patient insists that he stopped drinking 7 years ago, that information was obtained from the emergency room. Of course, we do not know how reliable that is. MENTAL STATUS EXAMINATION: This patient was alert and he was oriented definitely to place and to person and he knew the time of the day, that it was 9:00 p.m., that he is supposed to get his medicine and that it was only 8:00 p.m. I was not able to test whether he knew the date. The nurse's note on 06/24/2018 states that the patient is alert and oriented times three. The patient did not voice any suicidal or homicidal ideations. I did not elicit any psychotic symptoms during the time that we were talking. He said that his mood was fine, appeared to be more consistent with an angry mood. There were no overt psychotic symptoms. Insight and judgment did appear to be poor, however. ASSESSMENT AND PLAN: 1. Rule out unspecified cognitive disorder versus delirium. TREATMENT RECOMMENDATIONS: At this point, I am really not able to fully assess him because he is not cooperative with the evaluation, so I feel he lacks capacity to make medical decisions at this time, such as consenting for MRI, laboratory tests, and refusing physical examination. He does seem to come up with particular reason why he refuses laboratories and he refuses the physical examination. However, he was noncompliant with my attempting to assess if the patient understands the reasons for the MRI and the laboratory tests, that they are trying to rule out NPH and stabilize his sodium level. MOHSEN
--- NOTE | 2018-06-27 15:55 | IPNPDOC ---
Subjective Date Seen The patient was seen on 06/27/18. Subjective Chief Complaint/HPI Patient seen and examined at the bedside. Does not offer any acute complaints medical complaints this morning. Objective Physical Examination General Exam: Positive: Alert, No Acute Distress, Other (patient oriented to person, place, time, and situation.); Negative: Cooperative (patient can be noncooperative and sarcastic at times. However, does answer appropriately when encouraged.) ENT Exam: Positive: Atraumatic, Mucous membr. moist/pink Neck Exam: Negative: JVD Chest Exam: Positive: Clear to auscultation, Normal air movement Heart Exam: Positive: Rate Normal, Normal S1, Normal S2 Abdomen Exam: Positive: Soft; Negative: Tenderness Extremity Exam: Negative: Tenderness, Swelling Psych Exam: Positive: Oriented x 3 Assessment /Plan Plan/VTE VTE Prophylaxis Ordered?: Yes Plan Alteration of Mental Status likely 2/2 Hyponatremia from Decreased PO Intake/Dehydration, Non-Compliance of Medications CT Head notable for ventriculomegaly, and possible NPH vs Communicating Hydrocephalus Neurology consulted--suggested patient to f/u with [facility] as outpatient Psych input noted--patient has been non-cooperative with questioning at times, and has a history of non-compliance based on previous records--capacity to make decisions could not be ascertained due to non-cooperative nature. I did have a lengthy discussion with the patient at the bedside today. It appears that the patient can be sarcastic and non-cooperative at times rather than incapable of making decisions. If the patient is prompted or encouraged, he will provide adequate information, and does display adequate insight and understanding of his medical history. He was more amenable to answering quest ions for me. He states that he ran out of his Depakote medication as an outpatient and became increasingly confused, and is unsure if he may have had a seizure at home. He understands that he needs to take this medication daily as prescribed or he can suffer from recurrent seizures. Infectious work up has been negative The patient's mentation has improved at this time We will cont to monitor the patient History of seizure disorder The patient's depakote level was noted to be significantly subtherapeutic on admission EEG done on 06/23/18 within normal limits He did have a possible seizure yesterday according to the records Repeat Valproic acid level on the low end of therapeutic on repeat yesterday We will cont Depakote and monitor Neuro input appreciated Hyponatremia 2/2 Dehydration, Decreased PO Intake Serum Sodium has improved back to normal limits as of yesterday We will cont to monitor Tobacco abuse as needed nicotine patch. Deep vein thrombosis (DVT) prophylaxis Heparin SC Disposition--Pending clinical improvement. PFS on board VS, I&O, 24H, Fishbone Vital Signs/I&O Vital Signs Date Time Temp Pulse Resp B/P (MAP) Pulse Ox O2 Delivery O2 Flow Rate FiO2 06/27/18 12:00 97.8 113 20 118/80 (93) 90 06/23/18 14:00 06/22/18 09:31 Room Air I&O- Last 24 Hours up to 6 AM 06/27/18 06:00 Intake Total 0 ml Output Total 0 ml Balance 0 ml Laboratory Data 24H LABS Laboratory Tests 2 06/26/18 17:39: Immature Granulocyte % (Auto) 0.7, White Blood Count 4.6, Red Blood Count 3.47L, Hemoglobin 11.0L, Hematocrit 32.8L, Mean Corpuscular Volume 94.5, Mean Corpuscular Hemoglobin 31.7, Mean Corpuscular Hemoglobin Concent 33.5, Red Cell Distribution Width 16.6H, Platelet Count 212, Neutrophils (%) (Auto) 55.2, Lymphocytes (%) (Auto) 31.9, Monocytes (%) (Auto) 9.8H, Eosinophils (%) (Auto) 1.5, Basophils (%) (Auto) 0.9, Neutrophils # (Auto) 2.5, Lymphocytes # (Auto) 1.5, Monocytes # (Auto) 0.5, Eosinophils # (Auto) 0.1, Basophils # (Auto) 0.0, Nucleated Red Blood Cells % (auto) 0.0, Anion Gap 10, Glomerular Filtration Rate > 60.0, Blood Urea Nitrogen 7, Creatinine 0.54L, Sodium Level 136, Potassium Level 3.5, Chloride Level 102, Carbon Dioxide Level 24, Calcium Level 8.3L, Aspartate Amino Transf (AST/SGOT) 21, Alanine Aminotransferase (ALT/SGPT) 16, Alkaline Phosphatase 47, Total Bilirubin 0.4, Total Protein 6.2L, Albumin 3.0L, Albumin/Globulin Ratio 0.94L, Prolactin 26.5H, Valproic Acid (Depakene) Level 59.1 06/26/18 20:30: Bedside Glucose (Misc Panel) 77L CBC/BMP Laboratory Tests 06/26/18 17:39 Red Blood Count 3.47 L, Mean Corpuscular Volume 94.5, Mean Corpuscular Hemoglobin 31.7, Mean Corpuscular Hemoglobin Concent 33.5, Red Cell Distribution Width 16.6 H, Neutrophils (%) (Auto) 55.2, Lymphocytes (%) (Auto) 31.9, Monocytes (%) (Auto) 9.8 H, Eosinophils (%) (Auto) 1.5, Basophils (%) (Auto) 0.9, Neutrophils # (Auto) 2.5, Lymphocytes # (Auto) 1.5, Monocytes # (Auto) 0.5, Eosinophils # (Auto) 0.1, Basophils # (Auto) 0.0, Calcium Level 8.3 L, Aspartate Amino Transf (AST/SGOT) 21, Alanine Aminotransferase (ALT/SGPT) 16, Alkaline Phosphatase 47, Total Bilirubin 0.4, Total Protein 6.2 L, Albumin 3.0 L LUCÍA GREENFIELD MD Jun 27, 2018 15:55
[2018-06-28] MEDS: HEPARIN SOD (PORCINE) 5000 UNITS/ML VIAL SC SCH (05:08)
[2018-06-28] MEDS: DIVALPROEX 250MG *ER* TAB PO SCH (09:00)
--- NOTE | 2018-06-28 16:58 | DS.PDOC ---
Discharge Summary General Date of Admission Jun 20, 2018 at 22:41 Date of Discharge 06/28/18 Specialist/Consultants Involve Dr. Joy of Neurology, Dr. Bonilla of Psychiatry Discharge Summary PROCEDURES PERFORMED DURING STAY: None. ADMITTING/DISCHARGE DIAGNOSES: Alteration of Mental Status likely 2/2 Hyponatremia from Decreased PO Intake/Dehydration, Non-Compliance of Medications History of seizure disorder Hyponatremia 2/2 Dehydration, Decreased PO Intake CT Head notable for ventriculomegaly, and possible NPH vs Communicating Hydrocephalus COMPLICATIONS/CHIEF COMPLAINT: Altered Mental Status. HISTORY OF PRESENT ILLNESS: . 67-year-old male with past medical history of seizure disorder, tobacco use presented to ER after his neighbor noticed him sitting on his porch appearing disheveled and confused. The patient's history was limited on presentation, as he would later note that he was confused from possibly having a seizure at home from not taking his regularly prescribed antiepileptic medication. He stated that he was unable to get his medication renewed because his [employer] company had cut off his phone services due to a missed payment. He notes that he was in the process of getting services set back up but ultimately started to feel unwell, and ended up in the ER. He denied any complaints of fevers, chills, headaches, chest pain, palpitations, abdominal pain, or any nausea/vomiting/diarrhea. In the ER, a CT scan of the head was done with the results listed below. He was admitted to the hospitalist service for alteration in mental status. During hospitalization, an infectious workup was noted to be negative. The patient was provided with IV fluid hydration and started back on his antiepileptic medication. The patient did have a possible seizure during hospitalization when his valproic acid level was noted to be low/borderline normal. An EEG was done and was noted to within normal limits. Neurology was consulted, and their input was appreciated. Since taking his medication regularly for the past several days and receiving the aforementioned supportive therapy, the patient's mentation has significantly improved. He did not appear to have any focal neurological deficits. He was initially noted to be very aggressive and uncooperative with the staff and psychiatry was consulted. Capacity was initially unable to be determined by psychiatry due to the patient's uncooperative nature likely attributable to metabolic encephalopathy from postictal state, hyponatremia, and dehydration. However, after talking to the patient for the last two days and providing supportive treatment as noted above, the patient has been more amenable to cooperating. He tells me that he has been upset because he fell behind on his cable bill, and is afraid that he may lose his apartment if he does not get discharged home soon and follow up with his landlord. At baseline, the patient has been living on his own and supporting himself financially. He follows with his PCP Bernie Mejia, and notes that he has been taking his medications regularly up until the last week when he ran out of the meds due to extenuating circumstances. He is alert, and oriented to person, place, time, and situation at the time of my evaluation today. He displays adequate insight into his medical history, and understands the need for him to take medications. He has verbalized understanding that if he does not take his medications he could suffer from yet another seizure, and possibly worsening debility, and not limited to possible . He has been advised to abstain from driving, operating heavy machinery, swimming, or climbing any ladders until he is seen by his primary care provider. He has assured me that he will continue to take his medications, and follow-up with his primary care physician as scheduled within one week. DISCHARGE MEDICATIONS: Please see below. ALLERGIES: Please see below. PHYSICAL EXAMINATION ON DISCHARGE: VITAL SIGNS: Please see below. General Exam: Positive: Alert, No Acute Distress, Other (patient oriented to person, place, time, and situation.) ENT Exam: Positive: Atraumatic, Mucous membr. moist/pink Neck Exam: Negative: JVD Chest Exam: Positive: Clear to auscultation, Normal air movement Heart Exam: Positive: Rate Normal, Normal S1, Normal S2 Abdomen Exam: Positive: Soft; Negative: Tenderness Extremity Exam: Negative: Tenderness, Swelling Neurological Exam: No acute focal neurological deficits Psych Exam: Positive: Oriented x 3 LABORATORY DATA: Please see below. IMAGING: EXAM: CT Head Without Contrast EXAM DATE/TIME: 06/20/2018 8:19 PM CLINICAL HISTORY: 67 years old, male; Signs and symptoms; Altered mental status/memory loss; Confusion or disorientation TECHNIQUE: Axial computed tomography images of the head/brain without contrast. All CT scans at this facility use at least one of these dose optimization techniques: automated exposure control; mA and/or kV adjustment per patient size (includes targeted exams where dose is matched to clinical indication); or iterative reconstruction. COMPARISON: No relevant prior studies available. FINDINGS: Brain: Artifact limits evaluation of the posterior fossa and inferior left temporal lobe. There are periventricular foci of hypodensity, suggestive of small vessel ischemic disease in a patient this age. The acuity of the white matter disease is indeterminate. The white-santos differentiation is preserved demonstrating no acute territorial type infarct. No acute intracranial hemorrhage is seen. Midline shift: There is no midline shift. Ventricles: There is ventriculomegaly. Normal pressure or communicating hydrocephalus cannot be excluded. Mild/moderate sulcal atrophy is also visualized. Tiny calcifications are identified within the frontal horn of the left lateral ventricle. Bones/joints: The calvarium demonstrates no evidence for a depressed fracture. Sinuses: Visualized sinuses are unremarkable. No acute sinusitis. Mastoid air cells: No mastoid effusion. Soft tissues: Unremarkable. Vasculature: There is atherosclerotic calcification of the intracranial internal carotid arteries. IMPRESSION: 1. No acute intracranial hemorrhage or acute territorial type infarct. 2. There is ventriculomegaly. Normal pressure or communicating hydrocephalus cannot be excluded. Mild/moderate sulcal atrophy is also visualized. 3. There are periventricular foci of hypodensity, suggestive of small vessel ischemic disease in a patient this age. 4. If further evaluation is clinically indicated, an MRI of the brain with/without contrast is recommended. DIAGNOSIS: Altered mental status. EEG NUMBER: [id number] HISTORY: The patient is a 67-year-old man with a history of seizures. He was admitted at [facility] after he was found sitting in his porch dressed inappropriately. This EEG was done to rule out epileptic potential. He is currently taking Depakote, Ativan, Haldol, etc. TECHNICAL DESCRIPTION: This digital EEG was recorded by 21 scalp, ear and two EKG electrodes and was reviewed in bipolar and referential montages following reformatting in 10-20 international electrode placement system. INTERPRETATION: The patient was noted to be in awake and drowsy states during this EEG. Resting awake background rhythm consisted of well-formed posterior dominant rhythm with anterior/posterior gradient comprising of 8-9 Hz alpha activity measuring 15-40 microvolts in amplitude, which was symmetric and reactive to eye opening. Anteriorly low voltage and mixed frequency activity was noted. Attenuation of posterior dominant rhythm was seen during transition into drowsiness. Stage I and II sleep were reviewed and were symmetric bilaterally. Hyperventilation could not be performed. Photic stimulation remained unremarkable. EKG revealed normal sinus rhythm. No focal, lateralizing or epileptiform abnormalities were seen. No relevant clinical activity was recorded. CONCLUSION: This EEG in awake and drowsy states, stage I and II sleep is within normal Portable chest, 08:17 p.m., single AP view, patient sitting: Comparison is 04/12/2011. The lung baez are clear. The cardiac size is normal. The silvio, mediastinum, and skeletal structures are unremarkable. Impression: Negative portable chest. There is no interval change. Right upper quadrant abdominal ultrasound: There is no cholelithiasis, gallbladder wall thickening or pericholecystic fluid. There is a small volume of biliary sludge in the gallbladder. There is no intrahepatic or extrahepatic biliary duct dilatation. The common biliary duct measures 3.7 mm in diameter. The hepatic parenchyma is homogeneous and otherwise unremarkable. The pancreas is obscured by bowel gas. Right kidney measures 10.7 x 5.6 x 5.2 cm and is normal size. There are no calculi, there is no hydronephrosis. There are no solid or cystic renal masses. Impression: Small volume of biliary sludge in the gallbladder. Hepatic parenchyma is homogeneous and otherwise unremarkable. PROGNOSIS: Fair ACTIVITY: As tolerated. DIET: As tolerated DISCHARGE PLAN: DISPOSITION: 01 Home, Self-Care. Follow-up with primary care physician within one Follow up with neurosurgery as an outpatient for CT head results The patient declined an MRI of the Brain/C-Spine--risks, benefits, and alter galena options were discussed. He verbalized understanding of the same, and all questions were answered to his satisfaction.--the patient reports that he will follow up as an outpatient. DISCHARGE CONDITION: Stable. TIME SPENT ON DISCHARGE: Greater than 30 minutes. Vital Signs/I&Os Vital Signs Date Time Temp Pulse Resp B/P (MAP) Pulse Ox O2 Delivery O2 Flow Rate FiO2 06/27/18 12:00 97.8 113 20 118/80 (93) 90 06/23/18 14:00 06/22/18 09:31 Room Air I&O- Last 24 Hours up to 6 AM 06/28/18 06:00 Intake Total 1380 ml Output Total 0 ml Balance 1380 ml Discharge Medications Scheduled Divalproex Sodium (Divalproex Sodium ER) 250 Mg Tab, 250 MG PO BID, (Reported) Allergies Coded Allergies: No Known Drug Allergy (Verified Allergy, Unknown, 08/07/12) LUCÍA GREENFIELD MD Jun 28, 2018 16:58
== END 2018-06-28 15:10 | disposition home or self-care (01) | DRG 641 ==
LOC: M ED 19:35 → M ED INP 22:41 → M MSPAV 06-22 09:55 → M PCU 06-26 17:55
PROVIDERS: ADMIT Internal Medicine; ATTEND Internal Medicine
DX: E87.1 Hypo-osmolality and hyponatremia (principal); G91.2 (Idiopathic) normal pressure hydrocephalus; E86.0 Dehydration; G40.909 Epilepsy, unspecified, not intractable, without status epilepticus; R41.0 Disorientation, unspecified; F17.200 Nicotine dependence, unspecified, uncomplicated; R32 Unspecified urinary incontinence; G31.89 Other specified degenerative diseases of nervous system; Z79.899 Other long term (current) drug therapy; Z91.14 Patient's other noncompliance with medication regimen

== ENCOUNTER 2018-12-18 19:18 | Emergency (ER) | payer MEDICARE, MEDICAID ==
[~2018-12-18] VITALS: Ht 165.1 cm; Wt 59.1 kg
[~2018-12-18 19:18] MED LIST changes: -/OXAZ10CA OR; -/PRAV20TA OR; +DIVA250T7 PO; +OXAZ10CA25 OR; +PRAV1TAB39 OR
[2018-12-18] MEDS ORDERED: NS 1,000 ML IV ONE ×2 (19:45→21:30)
--- NOTE | 2018-12-18 20:05 | REP ---
Oral chest x-ray: Single view. History: Chest pain. Comparison chest x-ray: June 20, 2018. Findings: EKG monitoring electrodes overlie the chest. The heart is not enlarged. The lungs are hyperinflated but clear. There is a skin fold projecting at the left base. Pulmonary vasculature is not increased. Impression: Hyperinflation. Otherwise no acute disease. Electronically Signed by Rocael Dejesus MD 12/18/2018 07:57 P
[2018-12-18 20:52] LABS: BASO % 0.6 % (0.0-1.0); EOS % 0.4 % (0.0-3.0); HEMATOCRIT 40.6 % (42.0-52.0); HEMOGLOBIN 13.8 g/dl (13.5-17.5); LYMPH # 1.4 10^3/uL (1.5-4.5); LYMPH % 26.3 % (24.0-44.0); MEAN CORPUSCULAR HEMOGLOBIN 31.5 pg (27.0-33.0); MEAN CORPUSCULAR VOLUME 92.7 fl (80.0-96.0); MONO # 0.7 10^3/uL (0.0-0.8); MONO % 13.1 % (0.0-5.0); NEUTROPHILS # 3.2 10^3/uL (1.8-7.7); NEUTROPHILS % 59.2 % (36.0-66.0); PLATELET COUNT, AUTOMATED 166 10^3/uL (150-450); RED BLOOD COUNT 4.38 10^6/uL (4.30-6.10); WHITE BLOOD COUNT 5.4 10^3/uL (4.0-10.0)
--- NOTE | 2018-12-18 20:59 | ECGEPIP ---
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
[2018-12-18 21:08] LABS: INR 1.17; PROTHROMBIN TIME 14.6 SECONDS (11.8-14.0)
[2018-12-18 21:09] LABS: PARTIAL THROMBOPLASTIN TIME 30.3 SECONDS (25.0-38.4)
[2018-12-18 21:27] LABS: ALBUMIN 3.8 GM/DL (3.2-5.2); ALT/SGPT 8 U/L (12-78); BILIRUBIN,DIRECT 0.2 MG/DL (0.0-0.2); BILIRUBIN,TOTAL 0.5 MG/DL (0.2-1.0); BLOOD UREA NITROGEN 6 MG/DL (7-18); C REACTIVE PROTEIN QUANTITATIV < 0.30 MG/DL (0.00-0.30); CALCIUM LEVEL 9.2 MG/DL (8.8-10.2); CARBON DIOXIDE LEVEL 25 MEQ/L (21-32); CHLORIDE LEVEL 102 MEQ/L (98-107); CK-MB VALUE MASS 3.1 NG/ML (<3.6); CPK CREATINE PHOSPHOKINASE 160 U/L (39-308); CREATININE FOR GFR 0.85 MG/DL (0.70-1.30); ETHYL ALCOHOL (ETHANOL) < 0.003 % (0.000-0.010); FREE T4 1.21 NG/DL (0.76-1.46); GLOMERULAR FILTRATION RATE > 60.0 (>49); GLUCOSE, FASTING 78 MG/DL (70-100); LIPASE 95 U/L (73-393); MAGNESIUM LEVEL 2.1 MG/DL (1.8-2.4); MB/CK RELATIVE INDEX 1.94 (< OR =4); NT-PRO BNP 140 PG/ML (<125); POTASSIUM SERUM 3.7 MEQ/L (3.5-5.1); SODIUM LEVEL 136 MEQ/L (136-145); TOTAL PROTEIN 6.9 GM/DL (6.4-8.2); TROPONIN I < 0.02 NG/ML (< 0.10)
[2018-12-18 21:46] LABS: AMPHETAMINES LEVEL URINE NEGATIVE (NEGATIVE); BARBITURATES URINE NEGATIVE (NEGATIVE); BENZODIAZEPINES URINE NEGATIVE (NEGATIVE); CANNABINOIDS URINE NEGATIVE (NEGATIVE); COCAINE METABOLITE URINE NEGATIVE (NEGATIVE); METHADONE URINE NEGATIVE (NEGATIVE); OPIATES URINE NEGATIVE (NEGATIVE); PHENCYCLIDINE URINE NEGATIVE (NEGATIVE)
--- NOTE | 2018-12-19 00:16 | REPVR ---
EXAM: CT Head Without Contrast EXAM DATE/TIME: 12/18/2018 10:59 PM CLINICAL HISTORY: 68 years old, male; Syncope and collapse TECHNIQUE: Imaging protocol: Computed tomography images of the head without contrast. Radiation optimization: All CT scans at this facility use at least one of these dose optimization techniques: automated exposure control; mA and/or kV adjustment per patient size (includes targeted exams where dose is matched to clinical indication); or iterative reconstruction. COMPARISON: CT Head without contrast 06/20/2018 8:06 PM FINDINGS: There is no acute intracranial hemorrhage, extra axial hematoma, or midline shift. There is parenchymal volume loss. This is similar to the prior exam. There is prominence of the ventricles, likely related to parenchymal volume loss and similar in appearance to the prior exam. There is intracranial atherosclerosis. Mild microvascular ischemic changes suspected, not significantly changed from the prior exam. No CT findings are seen at the current time to suggest changes of acute territorial vascular infarction. Note is made however, that CT changes, may lag clinical findings in acute CVA. If clinically indicated, consideration could be given to MRI with diffusion weighted imaging, due to its greater sensitivity, for detection of acute ischemic change. Intracranial calcifications are incidentally noted. No pericranial scalp hematoma is seen. Nonspecific punctate dermal calcifications are noted. No acute cranial vault fracture is seen. No fluid is seen within the visualized paranasal sinuses or mastoid air cells. IMPRESSION: No evidence of acute territorial major vessel infarct, mass effect, or hemorrhage. No significant interval change from the prior exam. Parenchymal volume loss and slight prominence of the ventricles. Intracranial atherosclerosis and mild microvascular ischemic changes. Findings discussed above in detail. Electronically signed by: Raul Roman On 12/19/2018 00:15:55 AM
--- NOTE | 2018-12-19 00:23 | REPVR ---
EXAM: CT Cervical Spine Without Contrast EXAM DATE/TIME: 12/18/2018 10:59 PM CLINICAL HISTORY: 68 years old, male; Other: Syncope TECHNIQUE: Imaging protocol: Computed tomography images of the cervical spine without contrast. Coronal and sagittal reformatted images were created and reviewed. Radiation optimization: All CT scans at this facility use at least one of these dose optimization techniques: automated exposure control; mA and/or kV adjustment per patient size (includes targeted exams where dose is matched to clinical indication); or iterative reconstruction. COMPARISON: No relevant prior studies available. FINDINGS: Cervical vertebral body heights, posterior cervical alignment, and prevertebral soft tissues are within normal limits. The facet joints are not subluxed or dislocated. The atlantodental interval is maintained. Interspinous spacing is within normal limits. No paravertebral soft tissue hematoma seen. No acute fracture of cervical spine. Well-corticated calcification seen posterior to the spinous process of C7 may be related to old injury or dystrophic soft tissue calcification. There are severe degenerative changes of the cervical spine. There is disc space loss, anterior osteophytes, bony sclerosis, posterior bony ridging, uncovertebral hypertrophy, and facet hypertrophy and arthropathy. Bony degenerative changes appear to result in varying degrees of moderate to severe central canal and foraminal compromise at multiple levels. For further evaluation of degenerative changes, consider nonemergent MRI as clinically appropriate. Mild centrilobular emphysematous changes are present at the visualized lung apices. Carotid vascular calcifications are seen. IMPRESSION: No acute fracture of the cervical spine. Other findings discussed above. Electronically signed by: Raul Roman On 12/19/2018 00:23:49 AM
[2018-12-19 00:42] LABS: CK-MB VALUE MASS 3.4 NG/ML (<3.6); CPK CREATINE PHOSPHOKINASE 187 U/L (39-308); MB/CK RELATIVE INDEX 1.82 (< OR =4); TROPONIN I < 0.02 NG/ML (< 0.10)
[2018-12-19 00:46] VITALS: BP 127/79
--- NOTE | 2018-12-19 05:45 | ECGEPIP ---
[facility] - ED Test Date: 2018-12-18 Pat Name: MIKEY BARBER Department: Room: - Gender: Male [employer]: : 1950 Requested By: ARIELLA Eaton Order Number: [id number] Reading MD: Maycol Allen Measurements Intervals [place] Rate: 79 P: 49 MS: 203 QRS: 22 QRSD: 83 T: 28 QT: 350 QTc: 403 Interpretive Statements SINUS RHYTHM POSSIBLE LEFT ATRIAL ENLARGEMENT POOR R WAVE PROGRESSION POSSIBLE INCOMPLETE RIGHT BUNDLE BRANCH BLOCK BASELINE ARTIFACT AFFECTS INTERPRETATION SIMILAR TO PRIOR ON SAME DATE Electronically Signed on 12-19-2018 5:45:31 EDT by Maycol Allen
== END 2018-12-19 01:17 | disposition left against medical advice (07) ==
LOC: M ED 19:18
DX: R55 Syncope and collapse (principal); G40.909 Epilepsy, unspecified, not intractable, without status epilepticus; R00.0 Tachycardia, unspecified; I25.10 Atherosclerotic heart disease of native coronary artery without angina pectoris; E78.5 Hyperlipidemia, unspecified; I10 Essential (primary) hypertension; K21.9 Gastro-esophageal reflux disease without esophagitis; K76.0 Fatty (change of) liver, not elsewhere classified; Z72.0 Tobacco use; Z79.899 Other long term (current) drug therapy
CPT/HCPCS: 70450; 71045; 72125; 80048; 80076; 80164; 80307; 82550; 82553; 83690; 83735; 83880; 84439; 84443; 84484; 85025; 85610; 85730; 86140; 93005; 93041; 94760; 96360; 96361; 99285; G0480

== ENCOUNTER → 2019-04-03 | Outpatient (REF) | payer MEDICARE, MEDICAID ==
[2019-04-03 19:36] LABS: BASO % 0.5 % (0.0-1.0); EOS % 0.5 % (0.0-3.0); HEMATOCRIT 43.4 % (42.0-52.0); HEMOGLOBIN 14.6 g/dl (13.5-17.5); LYMPH # 1.4 10^3/uL (1.5-5.0); LYMPH % 34.2 % (24.0-44.0); MEAN CORPUSCULAR HGB CONC 33.6 g/dl (32.0-36.5); MEAN CORPUSCULAR VOLUME 95.2 fl (80.0-96.0); MONO # 0.4 10^3/uL (0.0-0.8); MONO % 8.4 % (0.0-5.0); NEUTROPHILS # 2.3 10^3/uL (1.5-8.5); NEUTROPHILS % 56.2 % (36.0-66.0); PLATELET COUNT, AUTOMATED 187 10^3/uL (150-450); RED BLOOD COUNT 4.56 10^6/uL (4.30-6.10); WHITE BLOOD COUNT 4.2 10^3/uL (4.0-10.0)
[2019-04-03 19:48] LABS: ALBUMIN 3.9 GM/DL (3.2-5.2); ALT/SGPT 12 U/L (12-78); BILIRUBIN,TOTAL 0.5 MG/DL (0.2-1.0); BLOOD UREA NITROGEN 7 MG/DL (7-18); CALCIUM LEVEL 8.7 MG/DL (8.8-10.2); CARBON DIOXIDE LEVEL 27 MEQ/L (21-32); CHLORIDE LEVEL 98 MEQ/L (98-107); CHOLESTEROL LEVEL 138 MG/DL (<200); CHOLESTEROL RISK RATIO 2.225 (<5); CREATININE FOR GFR 0.66 MG/DL (0.70-1.30); FREE T4 1.03 NG/DL (0.76-1.46); GLOMERULAR FILTRATION RATE > 60.0 (>49); GLUCOSE, FASTING 77 MG/DL (70-100); HDL CHOLESTEROL 62 MG/DL (>40); LDL CHOLESTEROL 59 MG/DL (<100); NON-HDL-C 76 MG/DL; POTASSIUM SERUM 4.2 MEQ/L (3.5-5.1); SODIUM LEVEL 132 MEQ/L (136-145); TOTAL PROTEIN 7.4 GM/DL (6.4-8.2); TRIGLYCERIDES LEVEL 85 MG/DL (<150)
[2019-04-03 19:51] LABS: TOTAL 25(OH) VITAMIN D 6.1 NG/ML (30.0-100.0)
[2019-04-03 20:06] LABS: HEMOGLOBIN A1c 5.1 %
[2019-04-07 00:07] LABS: Lyme Disease IgG/IgM Antibodie <0.91 ISR (0.00-0.90); Lyme Disease IgM Ab Quantitati <0.80 index (0.00-0.79)
== END ==
LOC: M LAB REF 19:03
PROVIDERS: ATTEND Family Medicine
DX: Z12.5 Encounter for screening for malignant neoplasm of prostate (principal); Z13.228 Encounter for screening for other metabolic disorders; M25.50 Pain in unspecified joint; Z79.899 Other long term (current) drug therapy
CPT/HCPCS: 80053; 80061; 82306; 83036; 84439; 84443; 85025; 86617; G0103

== ENCOUNTER → 2021-03-05 | Outpatient (CLI) | payer MEDICARE, MEDICAID ==
[2021-03-05 18:06] LABS: BASO % 0.6 % (0.0-1.0); EOS % 0.6 % (0.0-3.0); HEMATOCRIT 36.1 % (42.0-52.0); LYMPH # 1.6 10^3/uL (1.5-5.0); LYMPH % 30.7 % (24.0-44.0); MEAN CORPUSCULAR HEMOGLOBIN 32.7 pg (27.0-33.0); MEAN CORPUSCULAR HGB CONC 33.2 g/dl (32.0-36.5); MEAN CORPUSCULAR VOLUME 98.4 fl (80.0-96.0); MONO # 0.5 10^3/uL (0.0-0.8); MONO % 10.2 % (2.0-8.0); NEUTROPHILS % 57.5 % (36.0-66.0); PLATELET COUNT, AUTOMATED 120 10^3/uL (150-450); RED BLOOD COUNT 3.67 10^6/uL (4.30-6.10); WHITE BLOOD COUNT 5.2 10^3/uL (4.0-10.0)
[2021-03-05 18:23] LABS: ALBUMIN 3.4 GM/DL (3.2-5.2); ALT/SGPT 13 U/L (12-78); BILIRUBIN,TOTAL 0.4 MG/DL (0.2-1.0); BLOOD UREA NITROGEN 14 MG/DL (7-18); CARBON DIOXIDE LEVEL 32 MEQ/L (21-32); CHLORIDE LEVEL 105 MEQ/L (98-107); CREATININE FOR GFR 0.68 MG/DL (0.70-1.30); GLOMERULAR FILTRATION RATE > 60.0 (>49); GLUCOSE, FASTING 78 MG/DL (70-100); POTASSIUM SERUM 4.2 MEQ/L (3.5-5.1); SODIUM LEVEL 137 MEQ/L (136-145); TOTAL PROTEIN 6.8 GM/DL (6.4-8.2); VALPROIC ACID (DEPAKOTE) 98.9 UG/ML (50.0-100.0)
== END ==
LOC: M PLALAB 15:02
PROVIDERS: ATTEND Psychiatry & Neurology Neurology
DX: R56.9 Unspecified convulsions (principal)

== ENCOUNTER 2021-10-01 16:04 | Emergency (ER) | payer MEDICARE, MEDICAID ==
[~2021-10-01] VITALS: Ht 167.6 cm; Wt 49.6 kg
[2021-10-01 16:07] VITALS: BP 112/68
[2021-10-01 19:56] LABS: BASO % 0.5 % (0.0-1.0); EOS % 0.5 % (0.0-3.0); HEMATOCRIT 40.9 % (42.0-52.0); HEMOGLOBIN 13.8 g/dl (13.5-17.5); LYMPH # 1.8 10^3/uL (1.5-5.0); LYMPH % 33.5 % (24.0-44.0); MEAN CORPUSCULAR HEMOGLOBIN 33.8 pg (27.0-33.0); MEAN CORPUSCULAR HGB CONC 33.7 g/dl (32.0-36.5); MEAN CORPUSCULAR VOLUME 100.2 fl (80.0-96.0); MONO # 0.4 10^3/uL (0.0-0.8); MONO % 7.5 % (2.0-8.0); NEUTROPHILS # 3.2 10^3/uL (1.5-8.5); NEUTROPHILS % 57.6 % (36.0-66.0); RED BLOOD COUNT 4.08 10^6/uL (4.30-6.10); WHITE BLOOD COUNT 5.5 10^3/uL (4.0-10.0)
[2021-10-01 20:22] LABS: ALBUMIN 3.5 GM/DL (3.2-5.2); ALT/SGPT 14 U/L (12-78); BILIRUBIN,TOTAL 0.5 MG/DL (0.2-1.0); BLOOD UREA NITROGEN 13 MG/DL (7-18); CALCIUM LEVEL 9.3 MG/DL (8.8-10.2); CARBON DIOXIDE LEVEL 25 MEQ/L (21-32); CHLORIDE LEVEL 110 MEQ/L (98-107); GLOMERULAR FILTRATION RATE > 60.0 (>42); GLUCOSE, FASTING 72 MG/DL (70-100); LIPASE 156 U/L (73-393); POTASSIUM SERUM 4.7 MEQ/L (3.5-5.1); SODIUM LEVEL 142 MEQ/L (136-145); TOTAL PROTEIN 7.2 GM/DL (6.4-8.2)
[2021-10-01 20:23] LABS: PLATELET COUNT, AUTOMATED 87 10^3/uL (150-450)
== END 2021-10-01 20:52 | disposition home or self-care (01) ==
LOC: M ED 16:04
DX: R63.4 Abnormal weight loss (principal); J43.9 Emphysema, unspecified; I10 Essential (primary) hypertension; E78.5 Hyperlipidemia, unspecified; R56.9 Unspecified convulsions; F17.200 Nicotine dependence, unspecified, uncomplicated; Z79.899 Other long term (current) drug therapy

== ENCOUNTER 2022-01-22 16:18 | Inpatient (IN) | payer MEDICARE, MEDICAID ==
[~2022-01-22] VITALS: Ht 167.6 cm; Wt 52.2 kg
[2022-01-22] MEDS ORDERED: DEPA250T2 PO (17:08)
[2022-01-22 18:09] LABS: BASO % 0.3 % (0.0-1.0); EOS % 0.3 % (0.0-3.0); HEMATOCRIT 35.6 % (42.0-52.0); HEMOGLOBIN 12.3 g/dl (13.5-17.5); LYMPH # 0.9 10^3/uL (1.5-5.0); LYMPH % 24.5 % (24.0-44.0); MEAN CORPUSCULAR HEMOGLOBIN 33.4 pg (27.0-33.0); MEAN CORPUSCULAR HGB CONC 34.6 g/dl (32.0-36.5); MEAN CORPUSCULAR VOLUME 96.7 fl (80.0-96.0); MONO # 0.4 10^3/uL (0.0-0.8); MONO % 11.3 % (2.0-8.0); NEUTROPHILS # 2.2 10^3/uL (1.5-8.5); RED BLOOD COUNT 3.68 10^6/uL (4.30-6.10); WHITE BLOOD COUNT 3.6 10^3/uL (4.0-10.0)
[2022-01-22 18:12] LABS: PLATELET COUNT, AUTOMATED 26 10^3/uL (150-450)
[2022-01-22 18:41] LABS: CK-MB VALUE MASS 3.4 NG/ML (<3.6); MB/CK RELATIVE INDEX 1.45 (< OR =4)
[2022-01-22 18:48] LABS: ALBUMIN 3.1 GM/DL (3.2-5.2); ALT/SGPT 11 U/L (12-78); BILIRUBIN,DIRECT 0.3 MG/DL (0.0-0.2); BILIRUBIN,TOTAL 0.9 MG/DL (0.2-1.0); BLOOD UREA NITROGEN 16 MG/DL (7-18); CARBON DIOXIDE LEVEL 32 MEQ/L (21-32); CHLORIDE LEVEL 98 MEQ/L (98-107); CREATININE FOR GFR 0.77 MG/DL (0.70-1.30); GLOMERULAR FILTRATION RATE > 60.0 (>42); GLUCOSE, FASTING 73 MG/DL (70-100); POTASSIUM SERUM 3.5 MEQ/L (3.5-5.1); SODIUM LEVEL 134 MEQ/L (136-145); TOTAL PROTEIN 6.6 GM/DL (6.4-8.2)
[2022-01-22] MEDS ORDERED: NS 1,000 ML IV ONE (22:00)
[2022-01-22 23:02] LABS: BASO % 0.3 % (0.0-1.0); EOS % 0.7 % (0.0-3.0); HEMATOCRIT 36.6 % (42.0-52.0); HEMOGLOBIN 12.7 g/dl (13.5-17.5); LYMPH # 1.1 10^3/uL (1.5-5.0); LYMPH % 36.3 % (24.0-44.0); MEAN CORPUSCULAR HGB CONC 34.7 g/dl (32.0-36.5); MEAN CORPUSCULAR VOLUME 95.1 fl (80.0-96.0); MONO # 0.3 10^3/uL (0.0-0.8); MONO % 9.7 % (2.0-8.0); NEUTROPHILS # 1.5 10^3/uL (1.5-8.5); NEUTROPHILS % 52.7 % (36.0-66.0); RED BLOOD COUNT 3.85 10^6/uL (4.30-6.10); WHITE BLOOD COUNT 2.9 10^3/uL (4.0-10.0)
[2022-01-22] MEDS ORDERED: MED REC COMMENT (23:02)
[2022-01-22] MEDS ORDERED: HOME MED LIST COMPLETE! XX SCH (23:05)
[2022-01-22 23:15] LABS: PLATELET COUNT, AUTOMATED 21 10^3/uL (150-450)
[2022-01-22 23:20] LABS: ETHYL ALCOHOL (ETHANOL) 0.008 % (0.000-0.010); VALPROIC ACID (DEPAKOTE) 112.3 UG/ML (50.0-100.0)
[2022-01-23 00:32] LABS: RSV AMPLIFICATION NEGATIVE (NEGATIVE)
[2022-01-23 02:34] LABS: AMPHETAMINES LEVEL URINE NEGATIVE (NEGATIVE); BARBITURATES URINE NEGATIVE (NEGATIVE); BENZODIAZEPINES URINE NEGATIVE (NEGATIVE); CANNABINOIDS URINE NEGATIVE (NEGATIVE); COCAINE METABOLITE URINE NEGATIVE (NEGATIVE); METHADONE URINE NEGATIVE (NEGATIVE); OPIATES URINE NEGATIVE (NEGATIVE); PHENCYCLIDINE URINE NEGATIVE (NEGATIVE)
[2022-01-23 02:59] VITALS: BP 96/60
[2022-01-23] MEDS ORDERED: LORazepam 2 MG TAB PO PRN (03:55)
[2022-01-23 04:10] VITALS: BP 96/60
[2022-01-23] MEDS: THIAMINE INJection 500 MG in NS 100 ML IV SCH ×3 (04:38→20:20)
[2022-01-23 06:03] VITALS: BP 112/72
[2022-01-23] MEDS: FOLIC ACID 1MG TAB PO SCH (08:50)
[2022-01-23] MEDS: MULTIVITAMINS/MINERALS THERAP 1 TAB PO SCH (08:50)
[2022-01-23] MEDS: DIVALPROEX 250MG *ER* TAB PO SCH ×2 (08:50→20:20)
[2022-01-23] MEDS ORDERED: THIAMINE 100 MG TAB PO SCH (09:00)
[2022-01-23 09:14] LABS: BASO % 0.3 % (0.0-1.0); EOS % 0.3 % (0.0-3.0); HEMATOCRIT 41.2 % (42.0-52.0); HEMOGLOBIN 14.1 g/dl (13.5-17.5); LYMPH # 1.1 10^3/uL (1.5-5.0); LYMPH % 35.3 % (24.0-44.0); MEAN CORPUSCULAR HGB CONC 34.2 g/dl (32.0-36.5); MEAN CORPUSCULAR VOLUME 96.5 fl (80.0-96.0); MONO # 0.3 10^3/uL (0.0-0.8); MONO % 9.7 % (2.0-8.0); NEUTROPHILS # 1.6 10^3/uL (1.5-8.5); NEUTROPHILS % 53.4 % (36.0-66.0); RED BLOOD COUNT 4.27 10^6/uL (4.30-6.10)
[2022-01-23 09:15] LABS: PLATELET COUNT, AUTOMATED 26 10^3/uL (150-450)
[2022-01-23 09:24] LABS: INR 1.32; PROTHROMBIN TIME 16.8 SECONDS (12.7-14.5)
[2022-01-23 09:25] LABS: PARTIAL THROMBOPLASTIN TIME 32.2 SECONDS (25.9-37.0)
[2022-01-23 09:27] LABS: D-DIMER QUANT 677.48 ng/ml (<500)
[2022-01-23 09:38] LABS: ALT/SGPT 9 U/L (12-78); BILIRUBIN,TOTAL 0.7 MG/DL (0.2-1.0); BLOOD UREA NITROGEN 15 MG/DL (7-18); CALCIUM LEVEL 8.8 MG/DL (8.8-10.2); CARBON DIOXIDE LEVEL 31 MEQ/L (21-32); CHLORIDE LEVEL 100 MEQ/L (98-107); CREATININE FOR GFR 0.66 MG/DL (0.70-1.30); GLOMERULAR FILTRATION RATE > 60.0 (>42); GLUCOSE, FASTING 105 MG/DL (70-100); LDH LACTATE DEHYDROGENASE 192 U/L (87-241); POTASSIUM SERUM 3.2 MEQ/L (3.5-5.1); SODIUM LEVEL 135 MEQ/L (136-145); TOTAL PROTEIN 6.4 GM/DL (6.4-8.2)
[2022-01-23 14:00] VITALS: BP 120/60
[2022-01-23 20:40] VITALS: BP 118/64
[2022-01-23 21:00] VITALS: BP 118/64
[2022-01-24] MEDS: THIAMINE INJection 500 MG in NS 100 ML IV SCH ×3 (04:31→21:45)
[2022-01-24 05:29] VITALS: BP 109/64
[2022-01-24 06:07] VITALS: BP 109/64
[2022-01-24 06:21] LABS: BASO % 0.4 % (0.0-1.0); EOS % 0.4 % (0.0-3.0); HEMATOCRIT 38.4 % (42.0-52.0); HEMOGLOBIN 12.7 g/dl (13.5-17.5); LYMPH # 1.3 10^3/uL (1.5-5.0); LYMPH % 27.1 % (24.0-44.0); MEAN CORPUSCULAR HEMOGLOBIN 32.6 pg (27.0-33.0); MEAN CORPUSCULAR HGB CONC 33.1 g/dl (32.0-36.5); MEAN CORPUSCULAR VOLUME 98.7 fl (80.0-96.0); MONO # 0.7 10^3/uL (0.0-0.8); MONO % 13.8 % (2.0-8.0); NEUTROPHILS # 2.8 10^3/uL (1.5-8.5); NEUTROPHILS % 57.7 % (36.0-66.0); RED BLOOD COUNT 3.89 10^6/uL (4.30-6.10); WHITE BLOOD COUNT 4.9 10^3/uL (4.0-10.0)
[2022-01-24 06:28] LABS: PLATELET COUNT, AUTOMATED 25 10^3/uL (150-450)
[2022-01-24 07:18] LABS: ALBUMIN 2.3 GM/DL (3.2-5.2); ALT/SGPT 10 U/L (12-78); BILIRUBIN,TOTAL 0.6 MG/DL (0.2-1.0); BLOOD UREA NITROGEN 12 MG/DL (7-18); CALCIUM LEVEL 8.5 MG/DL (8.8-10.2); CARBON DIOXIDE LEVEL 24 MEQ/L (21-32); CHLORIDE LEVEL 101 MEQ/L (98-107); CREATININE FOR GFR 0.52 MG/DL (0.70-1.30); GLOMERULAR FILTRATION RATE > 60.0 (>42); GLUCOSE, FASTING 63 MG/DL (70-100); POTASSIUM SERUM 4.5 MEQ/L (3.5-5.1); SODIUM LEVEL 130 MEQ/L (136-145); TOTAL PROTEIN 6.2 GM/DL (6.4-8.2)
[2022-01-24] MEDS ORDERED: DEXTROSE 50% 50 ML SYRINGE IV PRN (07:30)
[2022-01-24] MEDS ORDERED: GLUCAGON INJ 1MG VIAL SC PRN (07:30)
[2022-01-24] MEDS ORDERED: GLUCOSE 4GM CHEW TABLET PO PRN (07:30)
[2022-01-24] MEDS ORDERED: FOLI1TAB11 PO (08:06)
[2022-01-24] MEDS ORDERED: VITMTA PO (08:06)
[2022-01-24] MEDS ORDERED: THIA100TA PO (08:06)
[2022-01-24] MEDS ORDERED: SODI1TAB6 PO (08:06)
[2022-01-24] MEDS: FOLIC ACID 1MG TAB PO SCH (09:27)
[2022-01-24] MEDS: DIVALPROEX 250MG *ER* TAB PO SCH ×2 (09:27→21:45)
[2022-01-24] MEDS: MULTIVITAMINS/MINERALS THERAP 1 TAB PO SCH (09:27)
[2022-01-24] MEDS: SODIUM CHLORIDE 1 GM TAB PO SCH ×3 (09:28→17:41)
[2022-01-24 14:00] VITALS: BP 127/74
[2022-01-24 20:53] LABS: BLOOD UREA NITROGEN 13 MG/DL (7-18); CALCIUM LEVEL 8.6 MG/DL (8.8-10.2); CARBON DIOXIDE LEVEL 27 MEQ/L (21-32); CHLORIDE LEVEL 102 MEQ/L (98-107); CREATININE FOR GFR 0.59 MG/DL (0.70-1.30); GLOMERULAR FILTRATION RATE > 60.0 (>42); GLUCOSE, FASTING 98 MG/DL (70-100); POTASSIUM SERUM 4.1 MEQ/L (3.5-5.1); SODIUM LEVEL 135 MEQ/L (136-145)
[2022-01-24 22:00] VITALS: BP 107/67
[2022-01-25] MEDS: THIAMINE INJection 500 MG in NS 100 ML IV SCH ×3 (04:50→20:40)
[2022-01-25 05:41] LABS: BASO % 0.7 % (0.0-1.0); EOS % 0.7 % (0.0-3.0); HEMATOCRIT 33.6 % (42.0-52.0); HEMOGLOBIN 11.3 g/dl (13.5-17.5); LYMPH # 1.3 10^3/uL (1.5-5.0); LYMPH % 29.9 % (24.0-44.0); MEAN CORPUSCULAR HEMOGLOBIN 33.5 pg (27.0-33.0); MEAN CORPUSCULAR HGB CONC 33.6 g/dl (32.0-36.5); MEAN CORPUSCULAR VOLUME 99.7 fl (80.0-96.0); MONO # 0.5 10^3/uL (0.0-0.8); MONO % 11.6 % (2.0-8.0); NEUTROPHILS # 2.5 10^3/uL (1.5-8.5); NEUTROPHILS % 56.2 % (36.0-66.0); RED BLOOD COUNT 3.37 10^6/uL (4.30-6.10); WHITE BLOOD COUNT 4.4 10^3/uL (4.0-10.0)
[2022-01-25 05:43] LABS: PLATELET COUNT, AUTOMATED 24 10^3/uL (150-450)
[2022-01-25 06:00] VITALS: BP 113/60
[2022-01-25 06:19] LABS: BLOOD UREA NITROGEN 13 MG/DL (7-18); CARBON DIOXIDE LEVEL 30 MEQ/L (21-32); CHLORIDE LEVEL 102 MEQ/L (98-107); CREATININE FOR GFR 0.54 MG/DL (0.70-1.30); GLOMERULAR FILTRATION RATE > 60.0 (>42); GLUCOSE, FASTING 91 MG/DL (70-100); POTASSIUM SERUM 3.7 MEQ/L (3.5-5.1); SODIUM LEVEL 136 MEQ/L (136-145)
[2022-01-25 06:20] LABS: ALBUMIN 2.4 GM/DL (3.2-5.2); ALT/SGPT 9 U/L (12-78); BILIRUBIN,TOTAL 0.4 MG/DL (0.2-1.0); CALCIUM LEVEL 8.2 MG/DL (8.8-10.2); TOTAL PROTEIN 5.3 GM/DL (6.4-8.2)
[2022-01-25] MEDS: MULTIVITAMINS/MINERALS THERAP 1 TAB PO SCH (09:00)
[2022-01-25] MEDS: SODIUM CHLORIDE 1 GM TAB PO SCH ×3 (09:00→17:14)
[2022-01-25] MEDS: FOLIC ACID 1MG TAB PO SCH (09:00)
[2022-01-25] MEDS: DIVALPROEX 250MG *ER* TAB PO SCH ×2 (09:02→20:39)
[2022-01-25 10:32] LABS: VITAMIN B12 LEVEL 1379 PG/ML (247-911)
[2022-01-25 14:16] VITALS: BP 100/71
[2022-01-25 22:00] VITALS: BP 128/64
[2022-01-25 23:07] LABS: FOLATE 4.5 ng/mL (>3.0)
[2022-01-26] MEDS: THIAMINE INJection 500 MG in NS 100 ML IV SCH ×3 (04:48→22:20)
[2022-01-26 06:00] VITALS: BP 94/63
[2022-01-26 06:45] LABS: BASO % 0.6 % (0.0-1.0); EOS # 0.1 10^3/uL (0.0-0.5); EOS % 1.3 % (0.0-3.0); HEMATOCRIT 29.4 % (42.0-52.0); HEMOGLOBIN 9.7 g/dl (13.5-17.5); LYMPH # 1.5 10^3/uL (1.5-5.0); LYMPH % 31.5 % (24.0-44.0); MEAN CORPUSCULAR HEMOGLOBIN 32.8 pg (27.0-33.0); MEAN CORPUSCULAR VOLUME 99.3 fl (80.0-96.0); MONO # 0.6 10^3/uL (0.0-0.8); MONO % 13.2 % (2.0-8.0); NEUTROPHILS # 2.5 10^3/uL (1.5-8.5); NEUTROPHILS % 52.8 % (36.0-66.0); RED BLOOD COUNT 2.96 10^6/uL (4.30-6.10); WHITE BLOOD COUNT 4.8 10^3/uL (4.0-10.0)
[2022-01-26 06:59] LABS: PLATELET COUNT, AUTOMATED 25 10^3/uL (150-450)
[2022-01-26 07:00] VITALS: BP 124/72
[2022-01-26 07:09] LABS: ALBUMIN 2.3 GM/DL (3.2-5.2); ALT/SGPT 7 U/L (12-78); BILIRUBIN,TOTAL 0.4 MG/DL (0.2-1.0); BLOOD UREA NITROGEN 14 MG/DL (7-18); CALCIUM LEVEL 7.9 MG/DL (8.8-10.2); CARBON DIOXIDE LEVEL 29 MEQ/L (21-32); CHLORIDE LEVEL 105 MEQ/L (98-107); GLOMERULAR FILTRATION RATE > 60.0 (>42); GLUCOSE, FASTING 75 MG/DL (70-100); POTASSIUM SERUM 4.2 MEQ/L (3.5-5.1); SODIUM LEVEL 137 MEQ/L (136-145)
[2022-01-26] MEDS: MULTIVITAMINS/MINERALS THERAP 1 TAB PO SCH (08:30)
[2022-01-26] MEDS: FOLIC ACID 1MG TAB PO SCH (08:30)
[2022-01-26] MEDS: SODIUM CHLORIDE 1 GM TAB PO SCH ×3 (08:30→18:07)
[2022-01-26] MEDS: DIVALPROEX 250MG *ER* TAB PO SCH ×2 (08:30→22:20)
[2022-01-26] MEDS: AUGMENTIN 875 MG TAB PO SCH ×2 (13:55→22:16)
[2022-01-26 14:00] VITALS: BP 70/50
[2022-01-26] MEDS ORDERED: NS 500 ML IV ONE ×2 (14:25→15:30)
[2022-01-26 15:04] VITALS: BP 90/52
[2022-01-26 15:54] LABS: BASO % 0.4 % (0.0-1.0); EOS % 0.8 % (0.0-3.0); HEMATOCRIT 29.8 % (42.0-52.0); HEMOGLOBIN 9.9 g/dl (13.5-17.5); MEAN CORPUSCULAR HEMOGLOBIN 33.3 pg (27.0-33.0); MEAN CORPUSCULAR HGB CONC 33.2 g/dl (32.0-36.5); MEAN CORPUSCULAR VOLUME 100.3 fl (80.0-96.0); MONO # 0.7 10^3/uL (0.0-0.8); MONO % 12.8 % (2.0-8.0); NEUTROPHILS # 3.4 10^3/uL (1.5-8.5); NEUTROPHILS % 65.4 % (36.0-66.0); RED BLOOD COUNT 2.97 10^6/uL (4.30-6.10); WHITE BLOOD COUNT 5.2 10^3/uL (4.0-10.0)
[2022-01-26 15:58] LABS: PLATELET COUNT, AUTOMATED 33 10^3/uL (150-450)
[2022-01-26 16:31] LABS: ALBUMIN 2.4 GM/DL (3.2-5.2); ALT/SGPT 11 U/L (12-78); BILIRUBIN,TOTAL 0.5 MG/DL (0.2-1.0); BLOOD UREA NITROGEN 16 MG/DL (7-18); CALCIUM LEVEL 8.1 MG/DL (8.8-10.2); CARBON DIOXIDE LEVEL 29 MEQ/L (21-32); CHLORIDE LEVEL 108 MEQ/L (98-107); CREATININE FOR GFR 0.44 MG/DL (0.70-1.30); GLOMERULAR FILTRATION RATE > 60.0 (>42); GLUCOSE, FASTING 92 MG/DL (70-100); SODIUM LEVEL 140 MEQ/L (136-145); TOTAL PROTEIN 5.2 GM/DL (6.4-8.2)
[2022-01-26 16:34] LABS: MB/CK RELATIVE INDEX 3.64 (< OR =4)
[2022-01-26 21:37] VITALS: BP 107/62
[2022-01-27 05:33] VITALS: BP 106/61
[2022-01-27] MEDS: THIAMINE INJection 500 MG in NS 100 ML IV SCH ×3 (05:33→21:55)
[2022-01-27] MEDS: SODIUM CHLORIDE 1 GM TAB PO SCH ×3 (08:20→17:28)
[2022-01-27] MEDS: AUGMENTIN 875 MG TAB PO SCH ×2 (08:20→21:55)
[2022-01-27] MEDS: FOLIC ACID 1MG TAB PO SCH (08:20)
[2022-01-27] MEDS: MULTIVITAMINS/MINERALS THERAP 1 TAB PO SCH (08:20)
[2022-01-27] MEDS: DIVALPROEX 250MG *ER* TAB PO SCH ×2 (08:21→21:55)
[2022-01-27 08:41] LABS: BASO % 0.6 % (0.0-1.0); EOS # 0.1 10^3/uL (0.0-0.5); HEMATOCRIT 31.3 % (42.0-52.0); HEMOGLOBIN 9.9 g/dl (13.5-17.5); LYMPH # 1.3 10^3/uL (1.5-5.0); LYMPH % 25.4 % (24.0-44.0); MEAN CORPUSCULAR HEMOGLOBIN 33.2 pg (27.0-33.0); MEAN CORPUSCULAR HGB CONC 31.6 g/dl (32.0-36.5); MONO # 0.6 10^3/uL (0.0-0.8); MONO % 10.9 % (2.0-8.0); NEUTROPHILS # 3.1 10^3/uL (1.5-8.5); NEUTROPHILS % 60.9 % (36.0-66.0); RED BLOOD COUNT 2.98 10^6/uL (4.30-6.10); WHITE BLOOD COUNT 5.2 10^3/uL (4.0-10.0)
[2022-01-27 08:44] LABS: PLATELET COUNT, AUTOMATED 46 10^3/uL (150-450)
[2022-01-27 09:31] LABS: ALBUMIN 2.2 GM/DL (3.2-5.2); ALT/SGPT 8 U/L (12-78); BILIRUBIN,TOTAL 0.5 MG/DL (0.2-1.0); BLOOD UREA NITROGEN 13 MG/DL (7-18); CALCIUM LEVEL 7.9 MG/DL (8.8-10.2); CARBON DIOXIDE LEVEL 20 MEQ/L (21-32); CHLORIDE LEVEL 106 MEQ/L (98-107); CREATININE FOR GFR 0.39 MG/DL (0.70-1.30); GLOMERULAR FILTRATION RATE > 60.0 (>42); GLUCOSE, FASTING 133 MG/DL (70-100); SODIUM LEVEL 133 MEQ/L (136-145); TOTAL PROTEIN 5.1 GM/DL (6.4-8.2)
[2022-01-27 14:11] LABS: ANTI PARVO VIRUS LEVEL IGG 3.7 index (0.0-0.8); ANTI PARVO VIRUS LEVEL IgM 0.1 index (0.0-0.8); Methylmalonic Acid 131 nmol/L (0-378)
[2022-01-28 05:30] VITALS: BP 104/60
[2022-01-28] MEDS: DIVALPROEX 250MG *ER* TAB PO SCH ×2 (09:29→21:22)
[2022-01-28] MEDS: MULTIVITAMINS/MINERALS THERAP 1 TAB PO SCH (09:30)
[2022-01-28] MEDS: FOLIC ACID 1MG TAB PO SCH (09:30)
[2022-01-28] MEDS: SODIUM CHLORIDE 1 GM TAB PO SCH ×3 (09:30→18:09)
[2022-01-28] MEDS: AUGMENTIN 875 MG TAB PO SCH ×2 (09:30→21:22)
[2022-01-29 06:00] VITALS: BP 102/59
[2022-01-29] MEDS: SODIUM CHLORIDE 1 GM TAB PO SCH ×3 (08:59→18:04)
[2022-01-29] MEDS: FOLIC ACID 1MG TAB PO SCH (08:59)
[2022-01-29] MEDS: DIVALPROEX 250MG *ER* TAB PO SCH ×2 (08:59→21:49)
[2022-01-29] MEDS: MULTIVITAMINS/MINERALS THERAP 1 TAB PO SCH (08:59)
[2022-01-29] MEDS: AUGMENTIN 875 MG TAB PO SCH ×2 (08:59→21:49)
[2022-01-29] MEDS ORDERED: COVID-19 VACC, MRNA(PFIZER)/PF 30MCG 0.3ML VIAL (EUA) IM.IMMUN ONE (12:00)
[2022-01-30 06:00] VITALS: BP 99/58
[2022-01-30 07:15] VITALS: BP 101/59
[2022-01-30] MEDS: MULTIVITAMINS/MINERALS THERAP 1 TAB PO SCH (09:09)
[2022-01-30] MEDS: AUGMENTIN 875 MG TAB PO SCH ×2 (09:09→20:22)
[2022-01-30] MEDS: FOLIC ACID 1MG TAB PO SCH (09:10)
[2022-01-30] MEDS: DIVALPROEX 250MG *ER* TAB PO SCH ×2 (09:10→20:22)
[2022-01-30] MEDS: SODIUM CHLORIDE 1 GM TAB PO SCH ×3 (09:10→17:32)
[2022-01-31 05:03] VITALS: BP 99/63
[2022-01-31] MEDS: AUGMENTIN 875 MG TAB PO SCH (10:17)
[2022-01-31] MEDS: DIVALPROEX 250MG *ER* TAB PO SCH ×2 (10:18→21:24)
[2022-01-31] MEDS: FOLIC ACID 1MG TAB PO SCH (10:18)
[2022-01-31] MEDS: MULTIVITAMINS/MINERALS THERAP 1 TAB PO SCH (10:18)
[2022-01-31] MEDS: SODIUM CHLORIDE 1 GM TAB PO SCH ×3 (10:36→18:00)
[2022-02-01 05:45] VITALS: BP 94/61
[2022-02-01] MEDS: DIVALPROEX 250MG *ER* TAB PO SCH (09:35)
[2022-02-01] MEDS: MULTIVITAMINS/MINERALS THERAP 1 TAB PO SCH (09:35)
[2022-02-01] MEDS: SODIUM CHLORIDE 1 GM TAB PO SCH (09:35)
[2022-02-01] MEDS: FOLIC ACID 1MG TAB PO SCH (09:35)
== END 2022-02-01 11:25 | DRG 808 ==
LOC: M ED 16:18 → M ED INP 23:28 → ENRESERV 01-23 02:14 → M MSPAV 01-23 02:59
PROVIDERS: ADMIT Family Medicine; ATTEND Internal Medicine
DX: D61.818 Other pancytopenia (principal); E43 Unspecified severe protein-calorie malnutrition; E51.2 Wernicke's encephalopathy; N39.0 Urinary tract infection, site not specified; R53.1 Weakness; R41.82 Altered mental status, unspecified; G40.909 Epilepsy, unspecified, not intractable, without status epilepticus; F17.200 Nicotine dependence, unspecified, uncomplicated; F10.10 Alcohol abuse, uncomplicated; R26.89 Other abnormalities of gait and mobility; D53.9 Nutritional anemia, unspecified; R19.7 Diarrhea, unspecified; B96.20 Unspecified Escherichia coli [E. coli] as the cause of diseases classified elsewhere; B95.8 Unspecified staphylococcus as the cause of diseases classified elsewhere; B96.89 Other specified bacterial agents as the cause of diseases classified elsewhere; Z79.899 Other long term (current) drug therapy